=== PATIENT | female | born 1935 | race Caucasian/White ===

== ENCOUNTER 2022-09-28 09:56 | Inpatient (IN) | payer OTHER ==
[~2022-09-28] VITALS: Ht 157.5 cm; Wt 59.0 kg
--- NOTE | 2022-09-28 10:09 | NUR ---
Placed in room 2 . Placed on surveillance monitor, blood pressure machine and pulse oximeter. To gown for exam. Side rails up. Report given to DEPEA HAQUE AND AV ZHANG.
[2022-09-28 10:10] VITALS: BP_SYST 124
--- NOTE | 2022-09-28 10:10 | NUR ---
ER at bedside examining patient.
--- NOTE | 2022-09-28 10:15 | NUR ---
Patient SHAWNA from [facility]. Patient is A&Ox2. Patient has a guardado present upon arrival. Patient is A&Ox2 responds with name and is awake. Patient is stable at this time.
--- NOTE | 2022-09-28 10:16 | NUR ---
Accucheck performed result is 164
[2022-09-28 11:20] LABS: BASOPHILS # (AUTO) 0.1 K/uL (0.0-0.2); BASOPHILS % (AUTO) 0.3 % (0.0-2.0); EOSINOPHILS # (AUTO) 0.1 K/uL (0.0-0.4); EOSINOPHILS % (AUTO) 0.3 % (0.0-4.0); HEMATOCRIT 45.5 % (36-48); HEMOGLOBIN 14.6 g/dL (12.0-16.0); LYMPHOCYTES # (AUTO) 1.2 K/uL (1.0-5.5); LYMPHOCYTES % (AUTO) 5.9 % (20.5-51.5); MEAN CORPUSCULAR HEMOGLOBIN 25 pg (27-31); MEAN CORPUSCULAR HGB CONC 32 % (32-36); MEAN CORPUSCULAR VOLUME 77 fL (79.0-98.0); MONOCYTES # (AUTO) 2.4 K/uL (0.0-1.0); MONOCYTES % (AUTO) 11.5 % (1.7-9.3); NEUTROPHILS # (AUTO) 17.2 K/uL (1.8-7.7); RED BLOOD CELL COUNT(AUTO) 5.93 MIL/uL (4.2-6.2); RED CELL DISTRIBUTION WIDTH 17.6 % (9.0-15.0); WHITE BLOOD COUNT (AUTO) 20.9 K/uL (4.8-10.8)
[2022-09-28 11:22] LABS: PLATELET COUNT (AUTO) 830 K/uL (130-430)
[2022-09-28 11:32] LABS: ANION GAP 16 (5-15); CALCIUM 9.6 mg/dL (8.4-11.0); CHLORIDE 90 mmol/L (98-107); CREATININE 2.89 mg/dL (0.55-1.30); GLUCOSE 129 mg/dL (70-99)
[2022-09-28 11:38] LABS: UREA NITROGEN, BLOOD 138 mg/dL (8-21)
[2022-09-28] MEDS ORDERED: NACL 0.9% 1,000 ML IV ONE (11:45)
--- NOTE | 2022-09-28 11:45 | NUR ---
Guardado replacement as ordered per Dr. Valencia. Student Nurse Louisaing from [facility] performed the Guardado change with assistance from EMT and CONCRETE LAYER. Patient appears to have stool incontinence. Large amount of brown escrement present upon assessment of genoturiniary site. Cleaned with wet wipes, and provided fresh linens, gown, and replaced sage prior to beginning the insertion of the guardado catheter. Upon assessment a foregin object was discovered in the vaginal area. The object is unknown. Object was removed, RN notified. Held for MD evaluation if needed. Student nurse performed insertion with sterile techniqe observed by CONCRETE LAYER. Patient HOB placed at 30 degrees for comfort and applied fresh blankets after checking temperature. Patient's temperature was 97.1.
[2022-09-28 11:46] LABS: ALANINE AMINOTRANSFERASE 31 U/L (12-78); ALBUMIN 3.2 g/dL (3.4-4.8); ASPARTATE AMINOTRANSFERASE 43 U/L (10-37); PHOSPHORUS 3.7 mg/dL (2.7-4.5)
[2022-09-28] MEDS ORDERED: VANCOMYCIN HCL 1,000 MG in NS 250 ML IV ONE (12:30)
[2022-09-28] MEDS ORDERED: CEFEPIME 1 GM in D5W 50 ML IV ONE (12:30)
--- NOTE | 2022-09-28 12:37 | NUR ---
TAKEN TO RADIOLOGY VIA OCTAVIO
--- NOTE | 2022-09-28 12:43 | NUR ---
COVID/MRSA taken to lab.
[2022-09-28] MEDS: POTASSIUM CHLORIDE 40 MEQ in NS 250 ML IV SCH ×2 (13:01→17:11)
[2022-09-28] MEDS ORDERED: MEGESTROL ACETATE PO (13:21)
[2022-09-28] MEDS ORDERED: ALBU2.5V7 INH (13:21)
[2022-09-28] MEDS ORDERED: METO5TAB9 PO (13:21)
[2022-09-28] MEDS ORDERED: POTA-197 PO (13:21)
[2022-09-28] MEDS ORDERED: MULT-1089 PO (13:21)
[2022-09-28] MEDS ORDERED: ACET325T PO (13:21)
[2022-09-28] MEDS ORDERED: HEPA500015 SUBCUT (13:21)
[2022-09-28] MEDS ORDERED: PRO40 PO (13:21)
[2022-09-28] MEDS ORDERED: HYDR-3917 PO (13:21)
[2022-09-28] MEDS ORDERED: APIX2.5T PO (13:21)
[2022-09-28] MEDS ORDERED: NITR1PAT84 TD (13:21)
[2022-09-28] MEDS ORDERED: LIDOCAINE PATCH TP (13:21)
[2022-09-28] MEDS ORDERED: CYCL10TA24 PO (13:21)
[2022-09-28] MEDS ORDERED: LORA-259 PO (13:21)
[2022-09-28] MEDS ORDERED: ONDA-8 TL (13:21)
[2022-09-28] MEDS ORDERED: SYN50 PO (13:21)
[2022-09-28] MEDS ORDERED: NEBI20TA2 PO (13:21)
[2022-09-28] MEDS ORDERED: VERA120C2 PO (13:21)
[2022-09-28] MEDS ORDERED: LIP10 PO (13:21)
[2022-09-28] MEDS ORDERED: FURO-149 PO (13:21)
[2022-09-28] MEDS ORDERED: DIA250 PO (13:21)
--- NOTE | 2022-09-28 13:23 | NUR ---
Medication reconciliation completed with information provided by [facility]. Any prior medication reconciliation on file was reviewed and corrected.
--- NOTE | 2022-09-28 13:24 | NUR ---
FAMILY AT BEDSIDE FOR EVALUATION
--- NOTE | 2022-09-28 13:34 | NUR ---
DR PAGAN SPEAKING WITH PTS FAMILY REGARDING PTS CONDITION
--- NOTE | 2022-09-28 13:40 | NUR ---
ER Dr. Valencia at bedside examining patient and speaking with son.
--- NOTE | 2022-09-28 13:42 | NUR ---
RN at bedside attempting a line for the ABX.
[2022-09-28] MEDS ORDERED: MORPHINE 2 MG/ML INJ. SYRINGE IVP ONE (13:45)
[2022-09-28] MEDS ORDERED: CEFEPIME 1 GM/VIAL (MAXIPIME) ONE (13:51)
[2022-09-28] MEDS ORDERED: D5/0.45 NS 1,000 ML IV ONE (14:00)
--- NOTE | 2022-09-28 14:05 | NUR ---
Stated height of patient obtained from son.
--- NOTE | 2022-09-28 14:44 | NUR ---
Admit bed requested Patient will be admitted to care of . Admitted to TELEMETRY unit. Diagnosis SEPSIS, HYPOKALEMIA, RENAL FAILURE Inpatient (Yes or No) Y Observation (Yes or No) N Orientation concerns or request close to nursing station (Yes or No) Y Covid Status NEGATIVE On vent or bipap N Isolation requirements N Needs a sitter N From Home (Yes or if No enter name of facility) N Requires Dialysis (Yes or No) N Med Rec Completed (Yes of No) DONE
[2022-09-28] MEDS ORDERED: VANCOMYCIN HCL 1000 MG/VIAL IV ONE (15:09)
[2022-09-28 15:59] LABS: BILIRUBIN,URINE NEGATIVE (NEGATIVE); BLOOD, URINE 3+ (NEGATIVE); CLARITY/URINE CLEAR (CLEAR); COLOR,URINE YELLOW (YELLOW); GLUCOSE,URINE NEGATIVE (NEGATIVE); KETONES,URINE NEGATIVE (NEGATIVE); NITRITE, URINE NEGATIVE (NEGATIVE); PH,URINE 5.5 (5.0-8.0); PROTEIN URINE NEGATIVE (NEGATIVE)
[2022-09-28 16:09] LABS: LEUKOCYTE ESTERASE ,URINE TRACE (NEGATIVE)
[2022-09-28 16:10] LABS: BACTERIA,URINE FEW /HPF (None Seen); MUCUS,URINE None Seen /LPF (None Seen); RBC,URINE 20-50 /HPF (0-3)
--- NOTE | 2022-09-28 16:13 | NUR ---
REPORT GIVEN TO JODI BOB
--- NOTE | 2022-09-28 16:19 | NUR ---
CONSULTATION PAGED REASON FOR CONSULTATION:SEPSIS, HYPOKALEMIA, RENAL FAILURE WAS CONSULT CALLED?Y PERSON WHO WAS NOTIFIED:RADHA CONSULTING PHYSICIAN:MAHNAZ MCDANIEL ROTARY PEEL OVEN TENDER SPECIALTYNEPHROLOGY: ROTARY PEEL OVEN TENDER PHONE NUMBER:[phone] REQUESTING PHYSICIAN:JOANN WALKER
--- NOTE | 2022-09-28 16:23 | NUR ---
CONSULTATION PAGED REASON FOR CONSULTATION:SEPSIS, HYPOKALEMIA, RENAL FAILURE WAS CONSULT CALLED?Y PERSON WHO WAS NOTIFIED:VIVIAN CONSULTING PHYSICIAN:JOSELIN PAGE WELDER FITTER HELPER SPECIALTY:IMFECTIOUS DISEASE WELDER FITTER HELPER PHONE NUMBER:[phone] REQUESTING PHYSICIAN:JOANN WALKER
[2022-09-28 17:20] VITALS: BP_SYST 143
--- NOTE | 2022-09-28 18:17 | NUR ---
Shift Summary: patient is AAOX0. vitals are stable. patient confused and unable to answer admission questions. redness on sacrum. Mepilex placed. patient had one bm during shift. patient currently resting. will endorse to oncoming nurse. call light within reach, bed set to low, locked, and alarm on.
[2022-09-28 20:00] VITALS: BP_SYST 119
--- NOTE | 2022-09-28 20:26 | NUR ---
RECEIVED PT LYING IN BED, NO DISTRESS NOTED. UNABLE TO STATE HER NAME, RAMBLING SPEECH. O2 SAT 97% RA, DIMINISHED LUNG SOUNDS, WEAK PULSES TO ALL EXTREMITIES, BRUISING NOTED TO BUE. F/C DRAINING CLOUDY TRENT URINE. PT HAS IV SITE TO RT AC, WILL NEED TO PUT ARM BOARD TO PREVENT BENDING. Addendum: 09/29/22 at 0714 by Lizzy Blanchard, SHABNAM HAQUE PT C/O PAIN LEFT MESSAGE WITH EXCHANGE FOR DR CALLE FOR PAIN MEDICATION
[2022-09-28] MEDS: PIPERACILLIN/TAZO 3.375 GM in NS 50 ML IV SCH (23:12)
[2022-09-28] MEDS: D5NS 1,000 ML IV SCH (23:14)
[2022-09-29] VITALS: BP_SYST 107
[2022-09-29 07:47] LABS: BASOPHILS # (AUTO) 0.1 K/uL (0.0-0.2); BASOPHILS % (AUTO) 0.4 % (0.0-2.0); EOSINOPHILS # (AUTO) 0.1 K/uL (0.0-0.4); EOSINOPHILS % (AUTO) 0.6 % (0.0-4.0); HEMATOCRIT 44.6 % (36-48); HEMOGLOBIN 14.1 g/dL (12.0-16.0); LYMPHOCYTES % (AUTO) 5.7 % (20.5-51.5); MEAN CORPUSCULAR HEMOGLOBIN 24 pg (27-31); MEAN CORPUSCULAR HGB CONC 32 % (32-36); MEAN CORPUSCULAR VOLUME 77 fL (79.0-98.0); MONOCYTES # (AUTO) 1.8 K/uL (0.0-1.0); MONOCYTES % (AUTO) 10.4 % (1.7-9.3); NEUTROPHILS # (AUTO) 14.2 K/uL (1.8-7.7); PLATELET COUNT (AUTO) 743 K/uL (130-430); RED BLOOD CELL COUNT(AUTO) 5.81 MIL/uL (4.2-6.2); RED CELL DISTRIBUTION WIDTH 17.3 % (9.0-15.0); WHITE BLOOD COUNT (AUTO) 17.2 K/uL (4.8-10.8)
[2022-09-29 08:15] VITALS: BP_SYST 118
[2022-09-29] MEDS: PIPERACILLIN/TAZO 3.375 GM in NS 50 ML IV SCH ×3 (08:25→21:35)
[2022-09-29] MEDS: D5NS 1,000 ML IV SCH ×3 (08:27→18:05)
[2022-09-29 08:43] LABS: ALANINE AMINOTRANSFERASE 28 U/L (12-78); ALBUMIN 2.8 g/dL (3.4-4.8); ASPARTATE AMINOTRANSFERASE 35 U/L (10-37); CALCIUM 9.2 mg/dL (8.4-11.0); CREATININE 2.18 mg/dL (0.55-1.30); GLUCOSE 117 mg/dL (70-99); PHOSPHORUS 3.1 mg/dL (2.7-4.5); THYROID STIMULATING HORMONE 2.47 uIu/mL (0.34-4.82)
[2022-09-29] MEDS ORDERED: metOLazone 5 MG TABLET PO SCH (09:00)
[2022-09-29] MEDS ORDERED: acetaZOLAMIDE 250 MG TABLET (DIAMOX) PO SCH (09:00)
[2022-09-29] MEDS ORDERED: FUROSEMIDE 40 MG TABLET PO SCH (09:00)
[2022-09-29] MEDS ORDERED: NEBIVOLOL HCL Non-Formulary 5 MG TABLET PO SCH (09:00)
[2022-09-29 09:05] LABS: ANION GAP 16 (5-15); CHLORIDE 100 mmol/L (98-107)
[2022-09-29 09:14] LABS: UREA NITROGEN, BLOOD 118 mg/dL (8-21)
[2022-09-29] MEDS: MORPHINE 2 MG/ML INJ. SYRINGE IVP PRN ×2 (10:46→18:03)
[2022-09-29] MEDS: MULTIVITAMINS TAB 1 TABLET PO SCH (10:46)
[2022-09-29] MEDS: VERAPAMIL HCL 120 MG TABLET.SA PO SCH (10:48)
[2022-09-29] MEDS: METOPROLOL TARTRATE 50 MG TABLET PO SCH ×2 (10:49→21:38)
[2022-09-29] MEDS: APIXABAN 2.5 MG TABLET PO SCH ×2 (10:50→21:38)
[2022-09-29] MEDS: POTASSIUM CHLORIDE 40 MEQ in NS 250 ML IV SCH ×2 (10:52→17:53)
[2022-09-29 11:26] VITALS: BP_SYST 111
[2022-09-29 11:43] LABS: NEUTROPHILS % (AUTO) 82.9 % (40.0-70.0)
--- NOTE | 2022-09-29 11:50 | NUR ---
CONSULTATION PAGED/CALLED Reason for Consultation: CRISTINA Person Who was Notified: SUMI Consulting Physician: MASON CAI ( DR STEEL SENIOR TRAINER) Group Marketing Vp Specialty: GI Ordering Physician: JOANN CALLE
--- NOTE | 2022-09-29 12:23 | NUR ---
I have left a voicemail for Portia Ramos PSYCHOLOGIST COUNSELING at 1211 to clarify the midline placement order. Pt currently has 2 working PIV lines and no notes for manager terminal abx therapy. If still necessary I will call Dr. Parmjit Qureshi, PICC RN, request to clarify if pt the pt is cleared to have from nephrology standpoint.
--- NOTE | 2022-09-29 12:55 | NUR ---
I did not receive a call back from Portia MAINTENANCE CONTROLLER but spoken with Dr. Bhatti and he stated to have the line placed for longer term tx, IV KCL. I have paged Dr. Parnell to verify if pt is cleared from his standpoint for midline.
--- NOTE | 2022-09-29 12:59 | NUR ---
I have obtained clearance from Dr. Parnell for midline. I have left a voicemail for her son Matty Jackman to get consent.
--- NOTE | 2022-09-29 13:27 | NUR ---
I have obtained consent from the son for midline and I have informed Titus PICC RN, as requested.
[2022-09-29] MEDS ORDERED: POTASSIUM CHLORIDE 40 MEQ in NS 250 ML IV ONE (14:00)
[2022-09-29 15:21] VITALS: BP_SYST 110
--- NOTE | 2022-09-29 15:55 | NUR ---
Midline in in place to the right upper arm. Pt's prior PIv was AC x2 and even with arm board the infusions has to be restarted frequenting d/t occlusions. The first K-rider is still infusing. Second will be provided next
[2022-09-29] MEDS ORDERED: ALLOPURINOL 100 MG TABLET (ZYLOPRIM) PO ONE (17:00)
[2022-09-29] MEDS ORDERED: VANCOMYCIN HCL 1,000 MG in NS 250 ML IV ONE (17:00)
--- NOTE | 2022-09-29 19:15 | NUR ---
OPENING NOTE REPORT RECEIVED FROM DAYSOHFT NURSE. PATIENT RECEIVED LYING IN BED, RESTING. NO S/S OF ACUTE DISTRESS. BREATHING EVEN AND UNLABORED. HOB RAISED. IVF INFUSING WELL. IV SITE PATENT, NO SIGNS OF INFILTRATION OR INFECTION NOTED. ORTEGA ATTACHED, SECURED AND DRAINING BY GRAVITY. CALL LIGHT WITH PATIENT. BED ALARM ON. BED IS LOCKED AND AT LOWEST POSITION. WILL CONTINUE TO MONITOR.
[2022-09-29 20:00] VITALS: BP_SYST 121
[2022-09-29] MEDS: CYCLOBENZAPRINE HCL 10 MG TABLET (FLEXERIL) PO SCH (21:38)
[2022-09-29] MEDS: ATORVASTATIN 10 MG TABLET PO SCH (21:38)
--- NOTE | 2022-09-29 23:00 | NUR ---
INCONTINENT CARE PATIENT CLEANED AT THIS TIME. TOLERATED WELL. ALL NEEDS MET. WILL MONITOR.
[2022-09-30] VITALS: BP_SYST 114
[2022-09-30] MEDS: MORPHINE 2 MG/ML INJ. SYRINGE IVP PRN (01:32)
--- NOTE | 2022-09-30 03:00 | NUR ---
ROUNDS PATIENT IN BED, RESTING. NO CHANGE FROM PREVIOUS. ALL NEEDS MET. WILL MONITOR.
[2022-09-30] MEDS: D5NS 1,000 ML IV SCH (04:37)
[2022-09-30] MEDS: LEVOTHYROXINE SODIUM 0.05 MG TABLET PO SCH (06:34)
[2022-09-30] MEDS: PIPERACILLIN/TAZO 3.375 GM in NS 50 ML IV SCH ×3 (06:34→21:03)
--- NOTE | 2022-09-30 06:43 | NUR ---
CLOSING NOTE PATIENT IN BED, RESTING. NO S/S OF ACUTE DISTRESS NOTED. BREATHING EVEN AND UNLABORED. HOB RAISED. IVF INFUSING WELL. ORTEGA ATTACHED, SECURED, AND DRAINING BY GRAVITY. ALL NEEDS MET THROUGHOUT SHIFT. FALL, SAFETY PRECAUTIONS MAINTAINED THROUGHOUT SHIFT. WILL CONTINUE TO MONITOR UNTIL PATIENT CARE IS ENDORSED TO ONCOMING DAYSHIFT NURSE.
[2022-09-30 07:17] LABS: BASOPHILS # (AUTO) 0.1 K/uL (0.0-0.2); BASOPHILS % (AUTO) 0.9 % (0.0-2.0); EOSINOPHILS # (AUTO) 0.2 K/uL (0.0-0.4); EOSINOPHILS % (AUTO) 1.7 % (0.0-4.0); LYMPHOCYTES # (AUTO) 1.2 K/uL (1.0-5.5); LYMPHOCYTES % (AUTO) 8.5 % (20.5-51.5); MEAN CORPUSCULAR HEMOGLOBIN 24 pg (27-31); MEAN CORPUSCULAR HGB CONC 31 % (32-36); MEAN CORPUSCULAR VOLUME 78 fL (79.0-98.0); MONOCYTES # (AUTO) 2.1 K/uL (0.0-1.0); MONOCYTES % (AUTO) 15.6 % (1.7-9.3); NEUTROPHILS % (AUTO) 73.3 % (40.0-70.0); PLATELET COUNT (AUTO) 633 K/uL (130-430); RED BLOOD CELL COUNT(AUTO) 5.76 MIL/uL (4.2-6.2); RED CELL DISTRIBUTION WIDTH 17.5 % (9.0-15.0); WHITE BLOOD COUNT (AUTO) 13.7 K/uL (4.8-10.8)
--- NOTE | 2022-09-30 08:00 | NUR ---
SUMMARY OF CARE 0800- HAD A BM, LARGE IN AMOUNT. PATIENT CONFUSED, SCREAM AT TIMES. RESTLESS. GOOD PERICARE PROVIDED, ALL BEDDING WAS CHANGED. ZINC OXIDE APPLIED TO BUTTOCKS AREA RE REDNESS. TURNED AN REPOSITIONED. 1000- SPOKE TO DR CALLE AND MADE AWARE RE K-LEVEL AND AGITATED AT TIMES W/ NEW ORDERED NOTED. 1200- ASLEEP, BUT AROUSABLE. 1500- DR COBURN CAME AND DID MANUAL DIS- IMPACTION TO PATIENT. 1700 - SON CAME TO SEE PATIENT. 1900- SLEEPY BUT AROUSABLE, MOAN AT TIMES.
[2022-09-30 08:39] VITALS: BP_SYST 124
[2022-09-30 08:45] LABS: ANION GAP 15 (5-15); CHLORIDE 104 mmol/L (98-107); CREATININE 1.81 mg/dL (0.55-1.30); GLUCOSE 116 mg/dL (70-99); UREA NITROGEN, BLOOD 90 mg/dL (8-21); VANCOMYCIN,RANDOM 13.9 ug/mL
[2022-09-30] MEDS ORDERED: COMMUNICATION ORDER XX ONE (09:45)
[2022-09-30] MEDS ORDERED: KCL 20 mEq in 100 mL (PREMIX) 100 ML IV ONE (09:45)
[2022-09-30] MEDS: VERAPAMIL HCL 120 MG TABLET.SA PO SCH (10:50)
[2022-09-30] MEDS: APIXABAN 2.5 MG TABLET PO SCH ×2 (10:52→21:03)
[2022-09-30] MEDS: ALLOPURINOL 100 MG TABLET (ZYLOPRIM) PO SCH (10:53)
[2022-09-30] MEDS: METOPROLOL TARTRATE 50 MG TABLET PO SCH ×2 (10:54→21:02)
[2022-09-30] MEDS: MULTIVITAMINS TAB 1 TABLET PO SCH (10:55)
[2022-09-30] MEDS: LORazepam 2 MG/ML VIAL IVP PRN ×2 (10:58→23:53)
[2022-09-30] MEDS ORDERED: POTASSIUM CHLORIDE 40 MEQ, LIDOCAINE JECT 2% PF 100 MG 50 MG in NS 250 ML IV ONE (11:00)
[2022-09-30 11:33] VITALS: BP_SYST 122
[2022-09-30] MEDS: POTASSIUM CHLORIDE 40 MEQ in D5NS 1,000 ML IV SCH ×2 (12:29→21:03)
[2022-09-30 14:06] LABS: CREATININE, URINE 29.5 mg/dL (Not Estab.); MICROALBUMIN URINE RANDOM 27.9 ug/mL (Not Estab.)
[2022-09-30 15:17] VITALS: BP_SYST 102
[2022-09-30] MEDS ORDERED: POLYETHYLENE GLYCOL 3350, 17 GM/ POWD.PACK PO ONE (16:00)
--- NOTE | 2022-09-30 16:22 | NUR ---
Dietitian Recommendations * Pureed diet (Ensure TID comes standard w/ current diet; ONS yields 1050 kcal/day, 60 gm protein/day) * Consider ST benji ellis for thorough assessment of pt's safety for PO diet * Snacks TID * Encourage good PO intakes LP, MS, RD Please refer to Nutrition Assessment for details. Addendum: 09/30/22 at [address] Amended: Links added.
[2022-09-30] MEDS ORDERED: VANCOMYCIN HCL 750 MG in NS 250 ML IV SCH (18:00)
--- NOTE | 2022-09-30 19:15 | NUR ---
OPENING NOTE REPORT RECEIVED FROM DAYSNVFT NURSE. PATIENT RECEIVED LYING IN BED, EYES CLOSED, RESTING. NO S/S OF ACUTE DISTRESS. BREATHING EVEN AND UNLABORED. HOB RAISED. IVF INFUSING WELL. IV SITE PATENT, NO SIGNS OF INFILTRATION OR INFECTION NOTED. ORTEGA ATTACHED, SECURED, AND DRAINING BY GRAVITY. CALL LIGHT WITH PATIENT. BED ALARM ON. BED IS LOCKED AND AT LOWEST POSITION. WILL CONTINUE TO MONITOR.
[2022-09-30 20:00] VITALS: BP_SYST 105
[2022-09-30] MEDS: CYCLOBENZAPRINE HCL 10 MG TABLET (FLEXERIL) PO SCH (21:02)
[2022-09-30] MEDS: ATORVASTATIN 10 MG TABLET PO SCH (21:02)
--- NOTE | 2022-09-30 23:00 | NUR ---
INCONTINENT CARE PATIENT CLEANED BY LACE BURN OUT TENDER AT THIS TIME. TOLERATED WELL. ALL NEEDS MET AT THIS TIME. WILL MONITOR.
[2022-10-01 01:09] VITALS: BP_SYST 112
--- NOTE | 2022-10-01 03:00 | NUR ---
ROUNDS PATIENT IN BED RESTING. ALL NEEDS MET. NO CHANGE IN CONDITION. WILL MONITOR.
[2022-10-01] MEDS: MORPHINE 2 MG/ML INJ. SYRINGE IVP PRN ×3 (03:34→23:40)
[2022-10-01] MEDS: POTASSIUM CHLORIDE 40 MEQ in D5NS 1,000 ML IV SCH (05:19)
[2022-10-01] MEDS ORDERED: cefTRIAXone 1 GM IVPB PREMIX 50 ML IV ONE (05:23)
[2022-10-01] MEDS: cefTRIAXone 1 GM in D5W 50 ML IV SCH (05:34)
[2022-10-01] MEDS: LEVOTHYROXINE SODIUM 0.05 MG TABLET PO SCH ×2 (06:12→08:56)
--- NOTE | 2022-10-01 06:32 | NUR ---
CLOSING NOTE PATIENT IN BED, NO S/S OF ACUTE DISTRESS. BREATHING EVEN AND UNLABORED. HOB RAISED. IVF INFUSING WELL. ORTEGA ATTACHED, SECURED, AND DRAINING BY GRAVITY. ALL NEEDS MET THROUGHOUT SHIFT. FALL, SAFETY PRECAUTIONS MAINTAINED THROUGHOUT SHIFT. WILL CONTINUE TO MONITOR UNTIL PATIENT CARE IS ENDORSED TO ONCOMING DAYSHIFT NURSE.
[2022-10-01 07:45] LABS: BASOPHILS # (AUTO) 0.1 K/uL (0.0-0.2); BASOPHILS % (AUTO) 1.5 % (0.0-2.0); EOSINOPHILS # (AUTO) 0.4 K/uL (0.0-0.4); HEMATOCRIT 41.5 % (36-48); HEMOGLOBIN 13.5 g/dL (12.0-16.0); LYMPHOCYTES % (AUTO) 10.1 % (20.5-51.5); MEAN CORPUSCULAR HEMOGLOBIN 25 pg (27-31); MEAN CORPUSCULAR HGB CONC 32 % (32-36); MEAN CORPUSCULAR VOLUME 77 fL (79.0-98.0); MONOCYTES # (AUTO) 1.3 K/uL (0.0-1.0); MONOCYTES % (AUTO) 12.8 % (1.7-9.3); NEUTROPHILS # (AUTO) 7.3 K/uL (1.8-7.7); NEUTROPHILS % (AUTO) 71.6 % (40.0-70.0); PLATELET COUNT (AUTO) 648 K/uL (130-430); RED BLOOD CELL COUNT(AUTO) 5.36 MIL/uL (4.2-6.2); RED CELL DISTRIBUTION WIDTH 17.4 % (9.0-15.0)
[2022-10-01 07:50] LABS: ALANINE AMINOTRANSFERASE 28 U/L (12-78); ALBUMIN 2.3 g/dL (3.4-4.8); ANION GAP 13 (5-15); ASPARTATE AMINOTRANSFERASE 31 U/L (10-37); CALCIUM 8.7 mg/dL (8.4-11.0); CHLORIDE 113 mmol/L (98-107); CREATININE 1.49 mg/dL (0.55-1.30); GLUCOSE 112 mg/dL (70-99); TOTAL BILIRUBIN 0.6 mg/dL (0.0-1.0); UREA NITROGEN, BLOOD 56 mg/dL (8-21)
--- NOTE | 2022-10-01 08:00 | NUR ---
Morning Rounds: Patient laying in bed. Patient is moaning occasionally. Bed in lowest position, call light within reach.
[2022-10-01 08:08] LABS: WHITE BLOOD COUNT (AUTO) 10.1 K/uL (4.8-10.8)
[2022-10-01] MEDS: LORazepam 2 MG/ML VIAL IVP PRN ×2 (08:51→15:25)
--- NOTE | 2022-10-01 09:06 | NUR ---
NEPHRO ORDER: POTASSIUM=2.[address] Aura MARISCAL,OF THE RESULT,WITH ORDERS, GIVE K-RIDER 40MEQ IV +LIDO 75MG X 1 DOSE
--- NOTE | 2022-10-01 09:08 | NUR ---
HIGH ALERT NOTE: Called back at his identified within the medical roster to verify physician authenticity.
[2022-10-01] MEDS: APIXABAN 2.5 MG TABLET PO SCH ×2 (09:10→21:02)
[2022-10-01] MEDS: ALLOPURINOL 100 MG TABLET (ZYLOPRIM) PO SCH (09:11)
[2022-10-01] MEDS: MULTIVITAMINS TAB 1 TABLET PO SCH (09:11)
[2022-10-01] MEDS: VERAPAMIL HCL 120 MG TABLET.SA PO SCH (09:11)
[2022-10-01] MEDS: METOPROLOL TARTRATE 50 MG TABLET PO SCH ×2 (09:12→21:03)
[2022-10-01] MEDS: POLYETHYLENE GLYCOL 3350, 17 GM/ POWD.PACK PO SCH (09:12)
[2022-10-01] MEDS ORDERED: POTASSIUM CHLORIDE 40 MEQ, LIDOCAINE JECT 2% PF 100 MG 75 MG in NS 250 ML IV ONE (10:00)
[2022-10-01 11:39] VITALS: BP_SYST 127
[2022-10-01 11:47] VITALS: BP_SYST 127
[2022-10-01 11:56] VITALS: BP_SYST 107
[2022-10-01] MEDS ORDERED: SPIRONOLACTONE 50 MG TABLET (ALDACTONE) PO ONE (13:30)
[2022-10-01] MEDS: KCL 20 mEq in D5/0.45NS 1000mL 1,000 ML IV SCH (15:16)
[2022-10-01 16:20] VITALS: BP_SYST 144
[2022-10-01 18:46] LABS: VANCOMYCIN,RANDOM 8.1 ug/mL
--- NOTE | 2022-10-01 19:30 | NUR ---
End of Shift: Patient is in bed. Endorsed night nurse to call doctor to increase pain medication frequency. Bed in lowest position, call light in reach.
[2022-10-01 20:00] VITALS: BP_SYST 120
[2022-10-01] MEDS: CYCLOBENZAPRINE HCL 10 MG TABLET (FLEXERIL) PO SCH (21:03)
[2022-10-01] MEDS: ATORVASTATIN 10 MG TABLET PO SCH (21:05)
[2022-10-01] MEDS: ACETAMINOPHEN 325 MG TABLET PO PRN (22:04)
--- NOTE | 2022-10-01 22:46 | NUR ---
Rectal Bleeding PT HAD RECTAL BLEEDING AND CLOTTED. NOTIFIED DR. CALLE @ [phone]. ORDERED CBC, CMP, PT/PTT IN THE MORNING. REFERS TO DR. CAI FOR GI BLEEDING.
--- NOTE | 2022-10-01 22:57 | NUR ---
CONSULTATION PAGED/CALLED Reason for Consultation: EPISODE OF RECTAL BLEEDING Person Who was Notified: DR OLIVIER Consulting Physician: DR CAI Incident Response Specialist Specialty: Ordering Physician: LUC
--- NOTE | 2022-10-01 23:00 | NUR ---
RECTUM BLEEDING RECEIVED CALL DR. OLIVIER @ 1518. REPORTED PT HAD BLEEDING FROM RECTUM AND AMOUNT WAS SOAKED ONE WHOLE PAD. SAID HE WILL SEE THE PATIENT IN THE MORNING. NO OTHER INTERVENTION ORDERED.
--- NOTE | 2022-10-02 00:08 | NUR ---
OPENING NOTE PT LYING IN BED AND SON AT BEDSIDE. PT SCREAMS FOR PAIN BUT NOT ABLE TO COMMUNICATE. VSS. PT'S SON ASKED FOR LOCAL PAIN INJECTION ON HER KNEE BECAUSE HE THINKS MORPHINE IS TOO STRONG FOR PT'S AGE. THIS NEWSPAPER WRITER WILL CALL DR. CALLE. BED ALARM ON. SAFETY CHECKS IN PLACE. CALL LIGHT IN REACH. CONTINUE TO MONITOR. Addendum: 10/02/22 at 0017 by Wilbert Hassan LVN THE INPUT TIME WAS 10/01/2022 @1930
[2022-10-02 00:37] VITALS: BP_SYST 126
--- NOTE | 2022-10-02 02:26 | NUR ---
PAGED PAGED DOCTOR ALMAS FOR ORDERS
--- NOTE | 2022-10-02 02:45 | NUR ---
REQUEST LAB. PT STILL BLEEDING. REQUEST MORNING BLOOD WORK NOW.
[2022-10-02 03:10] VITALS: BP_SYST 133
[2022-10-02 03:11] LABS: ANION GAP 12 (5-15); CALCIUM 8.9 mg/dL (8.4-11.0); CHLORIDE 119 mmol/L (98-107); CREATININE 1.26 mg/dL (0.55-1.30); GLUCOSE 105 mg/dL (70-99); UREA NITROGEN, BLOOD 39 mg/dL (8-21)
[2022-10-02 03:21] LABS: BASOPHILS # (AUTO) 0.1 K/uL (0.0-0.2); BASOPHILS % (AUTO) 1.2 % (0.0-2.0); EOSINOPHILS # (AUTO) 0.2 K/uL (0.0-0.4); HEMATOCRIT 36.5 % (36-48); HEMOGLOBIN 11.4 g/dL (12.0-16.0); LYMPHOCYTES # (AUTO) 1.4 K/uL (1.0-5.5); LYMPHOCYTES % (AUTO) 11.5 % (20.5-51.5); MEAN CORPUSCULAR HEMOGLOBIN 24 pg (27-31); MEAN CORPUSCULAR HGB CONC 31 % (32-36); MEAN CORPUSCULAR VOLUME 78 fL (79.0-98.0); MONOCYTES # (AUTO) 1.7 K/uL (0.0-1.0); MONOCYTES % (AUTO) 14.2 % (1.7-9.3); NEUTROPHILS # (AUTO) 8.5 K/uL (1.8-7.7); NEUTROPHILS % (AUTO) 71.1 % (40.0-70.0); PLATELET COUNT (AUTO) 662 K/uL (130-430); RED BLOOD CELL COUNT(AUTO) 4.69 MIL/uL (4.2-6.2); RED CELL DISTRIBUTION WIDTH 17.4 % (9.0-15.0)
--- NOTE | 2022-10-02 03:50 | NUR ---
LAB RESULTS PT'S BLOOD TEST RESULTS HgB 11.4, Hct 36.5, POTASSIUM 3.5, BUN 39. NOTIFIED SHABNAM STEVE. CONTINUE TO MONITOR
[2022-10-02] MEDS: LORazepam 2 MG/ML VIAL IVP PRN ×3 (04:25→22:56)
[2022-10-02 04:42] LABS: INR 1.3 (0.8-1.2); PROTHROMBIN TIME 13.3 SECS (9.5-12.5)
[2022-10-02] MEDS: cefTRIAXone 1 GM in D5W 50 ML IV SCH (04:49)
[2022-10-02] MEDS: KCL 20 mEq in D5/0.45NS 1000mL 1,000 ML IV SCH (04:51)
--- NOTE | 2022-10-02 07:27 | NUR ---
CLOSING NOTE PT LYING IN BED. EYES CLOSED. RESTLESS. STILL RECTAL BLEEDING. CALLED TO PT'S SON FOR PT'S CONDITION UPDATE @0700 BUT NOT ANSWERED. SAFETY CHECKS IN PLACE. CALL LIGHT IN REACH. ENDORSED TO DAY SHIFT NURSE AND INFORMED ABOUT GI Dr. COBURN WILL SEE HER IN THE MORNING FOR RECTAL BLEEDING.
[2022-10-02 08:00] VITALS: BP_SYST 139
--- NOTE | 2022-10-02 08:00 | NUR ---
Morning Rounds: Patient is moaning in bed. Patient unable to communicate. Bed in lowest position, call light in reach.
[2022-10-02] MEDS: VERAPAMIL HCL 120 MG TABLET.SA PO SCH (09:00)
[2022-10-02] MEDS: APIXABAN 2.5 MG TABLET PO SCH ×2 (09:00→23:02)
[2022-10-02] MEDS: POLYETHYLENE GLYCOL 3350, 17 GM/ POWD.PACK PO SCH (09:00)
[2022-10-02] MEDS ORDERED: BISACODYL 5 MG TABLET.DR (DULCOLAX) PO ONE (09:00)
[2022-10-02] MEDS: ALLOPURINOL 100 MG TABLET (ZYLOPRIM) PO SCH (09:00)
[2022-10-02] MEDS: MULTIVITAMINS TAB 1 TABLET PO SCH (09:00)
[2022-10-02] MEDS: MORPHINE 2 MG/ML INJ. SYRINGE IVP PRN ×2 (09:26→17:58)
[2022-10-02] MEDS ORDERED: GOLYTELY / COLYTE SOLUTION 4 LITERS NG ONE (10:00)
--- NOTE | 2022-10-02 10:00 | NUR ---
Blood clots: Another large blood clots came out,cleaned patient.Gi already aware and ordered for Kub and Ng tube placement.
--- NOTE | 2022-10-02 10:15 | NUR ---
NG TUBE: NG TUBE PLACED AT LEFT NOSTRILS,CHECKED PLACEMENT VIA STETHOSCOPE,POSITIVE PLACEMENT.
--- NOTE | 2022-10-02 10:40 | NUR ---
PORTABLE X-RAY: KUB DONE AT THE BEDSIDE ORDERED.
[2022-10-02 11:41] VITALS: BP_SYST 117
[2022-10-02] MEDS: SPIRONOLACTONE 50 MG TABLET (ALDACTONE) PO SCH (14:01)
[2022-10-02] MEDS: METOPROLOL TARTRATE 50 MG TABLET PO SCH ×2 (14:01→23:01)
--- NOTE | 2022-10-02 14:15 | NUR ---
NGT ADJUSTMENT: NG TUBE AT LEFT NARES ADVANCED TO 5CM PER RADIOLOGIST. RECHECKED NG TUBE AT LEFT NARES BY AUSCULTATION,WITH POSITIVE PLACEMENT NOTED.
--- NOTE | 2022-10-02 15:30 | NUR ---
CALLED MD: CALLED DR CALLE AND SPOKE WITH SON CAROLA FOR UPDATES REGARDING PATIENT CONDITION.
[2022-10-02 17:31] VITALS: BP_SYST 112
--- NOTE | 2022-10-02 18:00 | NUR ---
GI ROUNDS: DR COBURN SEEN PATIENT IN THE ROOM.INFORMED GI THAT PT'S SON/FAMILY WANTS SOME UPDATES REGARDING PATIENT CONDITION. WITH ORDERS TO CHECK H&H Q 8H X3.
[2022-10-02] MEDS: KCL 20 mEq in D5W 1000 mL 1,000 ML IV SCH (18:04)
--- NOTE | 2022-10-02 19:45 | NUR ---
Closing Rounds: Patient is lying in bed moaning. Call light in reach, bed in lowest position. Began bowel prep for ordered morning colonoscopy, procedure/protocol endorsed to oncoming pointing machine operator. NPO, water tap enemia until clear per order.
[2022-10-02 20:00] VITALS: BP_SYST 123
--- NOTE | 2022-10-02 20:00 | NUR ---
OPENING Received patient in bed, noted to be restless. Mitten restraints on. Patient had large bowel movement with large blood clots noted. Gown and linens changed. NG tube to left nare. Adkins catheter in place draining jayant urine. IV fluids infusing to midline.
[2022-10-02 20:19] LABS: HEMATOCRIT 28.6 % (36-48); HEMOGLOBIN 8.6 g/dL (12.0-16.0)
--- NOTE | 2022-10-02 21:40 | NUR ---
PAGED PAGE DOCTOR ALMAS
--- NOTE | 2022-10-02 21:40 | NUR ---
Patient restless, yelling and attempting to pull at NG tube despite mittens. Mittens discontinued and switched to bilateral wrist restraints as ordered.
--- NOTE | 2022-10-02 22:05 | NUR ---
2 ND PAGED PAGED DOCTOR ALMAS FOR ORDERS
--- NOTE | 2022-10-02 22:07 | NUR ---
CONSULTATION PAGED/CALLED Reason for Consultation: ARRYTHMIA Person Who was Notified: CONSUELO Consulting Physician: JAC Potato Bucker Specialty: Ordering Physician: LUC
--- NOTE | 2022-10-02 22:13 | NUR ---
DR. KIM Spoke with Dr. Kim about new consultation including current bleeding and plan for colonoscopy. Notified him of patient's rhythm change and decreasing BP, as well as presence of pacemaker with no paced beats shown in the last few days on tele monitor (some were noted after admission). Received order for 250mL NS bolus and to change rate of IV fluids.
[2022-10-02] MEDS ORDERED: NS 250 ML IV ONE (22:15)
--- NOTE | 2022-10-02 22:40 | NUR ---
DR. REED Spoke with Dr. Reed about patient's continued bleeding and vitals. Dr. Reed stated he wants to continue with preparation for colonoscopy in the morning. Received order for H&H q6hr x4 and order to transfer 1 unit PRBCs if Hgb<8, and to transfuse 2 units PRBCs if Hgb<7.
[2022-10-02] MEDS: CYCLOBENZAPRINE HCL 10 MG TABLET (FLEXERIL) PO SCH (23:03)
[2022-10-02] MEDS: ATORVASTATIN 10 MG TABLET PO SCH (23:03)
[2022-10-03] VITALS (21 sets, daily range): BP systolic 97–146
[2022-10-03] MEDS ORDERED: metroNIDAZOLE 500 mg/NS 200 ML IV ONE (00:55)
[2022-10-03] MEDS: metroNIDAZOLE 500 mg/NS 100 ML IV SCH ×5 (01:02→21:02)
[2022-10-03 01:12] LABS: HEMATOCRIT 22.3 % (36-48)
--- NOTE | 2022-10-03 01:18 | NUR ---
CRITICAL LAB: Ed from Laboratory called with critical lab value Hgb 7.0. Medical record number and patient name verified. Read back of values done.
--- NOTE | 2022-10-03 03:00 | NUR ---
Dr. Reed notified of patient's Hgb 7.0 and decreased blood pressure. BP fluctuating with positioning but SBP noted in 80s when head elevated. Received order to transfer to ICU. No bed currently available. Dr. Reed stated to continue with preparation for colonoscopy in morning.
--- NOTE | 2022-10-03 03:55 | NUR ---
BLOOD TRANSFUSION INITIATION AT 0340 (UNIT 1 of 2 ORDERED) Consent signed agreeing to administration of blood. Blood has been type and crossmatched. Blood sent from blood bank. Information on unit of blood checked against patient wristband at bedside by two nurses. All information matches. No reaction noted after 15 minutes - temp 96.9, HR 67, BP 110/72, RR 20.
--- NOTE | 2022-10-03 04:30 | NUR ---
Patient transferred to ICU. Blood still infusing, no sign of reaction. Bilateral wrist restraints on. NG tube and Adkins catheter in place.
[2022-10-03] MEDS: KCL 20 mEq in D5W 1000 mL 1,000 ML IV SCH ×3 (04:59→21:01)
[2022-10-03] MEDS: cefTRIAXone 1 GM in D5W 50 ML IV SCH (05:00)
[2022-10-03] MEDS: LEVOTHYROXINE SODIUM 0.05 MG TABLET PO SCH (06:14)
[2022-10-03] MEDS: LORazepam 2 MG/ML VIAL IVP PRN ×2 (06:15→16:55)
[2022-10-03 07:05] LABS: INR 1.5 (0.8-1.2); PROTHROMBIN TIME 14.5 SECS (9.5-12.5)
[2022-10-03 07:10] LABS: ANION GAP 18 (5-15); CALCIUM 8.5 mg/dL (8.4-11.0); CHLORIDE 117 mmol/L (98-107); CREATININE 2.06 mg/dL (0.55-1.30); GLUCOSE 96 mg/dL (70-99); UREA NITROGEN, BLOOD 42 mg/dL (8-21)
[2022-10-03] MEDS ORDERED: MIDAZOLAM HCL 5 MG/5 ML VIAL ONE (08:00)
[2022-10-03] MEDS ORDERED: fentaNYL CITRATE/PF 100 MCG/2 ML AMP ONE (08:00)
[2022-10-03] MEDS ORDERED: SIMETHICONE 40 MG/0.6 ML ML ONE (08:06)
--- NOTE | 2022-10-03 08:27 | NUR ---
BLOOD TRANSFUSION FINISHED, POST TRANSFUSION VITAL SIGNS. 142/89, 106 HEART RATE, 19 RR, 96.0 TEMP, 100% O2 ON 3L NASAL CANNULA.
[2022-10-03] MEDS ORDERED: NS 500 ML IV ONE (08:30)
--- NOTE | 2022-10-03 08:57 | NUR ---
rt notes 0837 placed pt on portable pulse ox, placed pt on nrb 100% while colonoscopy procedure is done. sat 100%. replaced pulse ox on ear lobe. pt cont to sat 100% will titrate fio2 post procedure, joel rangel aware. Addendum: 10/03/22 at 0900 by Ethel Raymundo RT Amended: Links added.
[2022-10-03] MEDS: POLYETHYLENE GLYCOL 3350, 17 GM/ POWD.PACK PO SCH (09:00)
[2022-10-03] MEDS: VERAPAMIL HCL 120 MG TABLET.SA PO SCH ×2 (09:00→13:49)
--- NOTE | 2022-10-03 09:20 | NUR ---
COLONOSCOPY FINISHED, PATIENT TOLERATED WELL. NO S/SX DISTRESS NOTED. PER DR. CARVER RECTAL ULCER SEEN. PER DR. CARVER PATIENT TO GO ON CLEAR LIQUID DIET. NURSE TO DO BEDSIDE SWALLOW EVAL
[2022-10-03 09:26] LABS: BASOPHILS # (AUTO) 0.1 K/uL (0.0-0.2); BASOPHILS % (AUTO) 0.8 % (0.0-2.0); EOSINOPHILS # (AUTO) 0.2 K/uL (0.0-0.4); HEMATOCRIT 29.8 % (36-48); HEMOGLOBIN 9.5 g/dL (12.0-16.0); LYMPHOCYTES # (AUTO) 2.1 K/uL (1.0-5.5); LYMPHOCYTES % (AUTO) 12.7 % (20.5-51.5); MEAN CORPUSCULAR HEMOGLOBIN 27 pg (27-31); MEAN CORPUSCULAR HGB CONC 32 % (32-36); MEAN CORPUSCULAR VOLUME 83 fL (79.0-98.0); MONOCYTES # (AUTO) 2.1 K/uL (0.0-1.0); MONOCYTES % (AUTO) 12.4 % (1.7-9.3); NEUTROPHILS # (AUTO) 12.2 K/uL (1.8-7.7); NEUTROPHILS % (AUTO) 73.1 % (40.0-70.0); PLATELET COUNT (AUTO) 402 K/uL (130-430); RED BLOOD CELL COUNT(AUTO) 3.57 MIL/uL (4.2-6.2); RED CELL DISTRIBUTION WIDTH 18.5 % (9.0-15.0); WHITE BLOOD COUNT (AUTO) 16.7 K/uL (4.8-10.8)
--- NOTE | 2022-10-03 09:59 | NUR ---
Nutrition F/U RD reviewed pts current EMR including diet hx, physician notes, nursing notes, pertinent labs/meds/procedures, care trends and care activity. Subjective Information RD attended ICU rounds and s/w primary RN. She said pt is receiving D5@ 120mL/hr (provides 490 kcal). Pt had NGT to left nare but Dr will DC that soon. Pt is on 3L LC. RN attested pt has intact skin but sacral redness. RN said that CLD will likely begin today. Per EMR review:abd soft, non-distended w/ active bowel sounds. Current Diet Order/Nutrition Support NPO x 1 day % PO intake NPO Last BM 10/01 x 3, d/t golytely medication Estimated Energy Expenditure (kcals/day) 1433-1232 (30-35 kcal/kg CBW d/t sepsis) Estimated Protein Required (g/day) 71-88 (1.25-1.5 gm/kg CBW d/t FARHAD, sepsis) Estimated Fluid Required (l/day) Per physician d/t CHF Problem/Etiology/Signs/Symptoms Inadequate oral intakes R/T suspected chewing/swallowing difficulty AEB negligible PO intake records and nursing report. Expected Outcomes/Goals - Monitor appetite and PO intakes w/ goal of pt meeting >25% of estimated nutritional needs, labs trending WNL, normal GI function, and skin integrity/wt maintenance Dietitian Recommendations * Advance to Clear liquid diet when appropriate * Consider ST swallow eval for thorough assessment of pt's safety for PO diet * Encourage good PO intakes Follow up High risk: see pt in 2-3 days GS, MPH, RD
--- NOTE | 2022-10-03 10:00 | NUR ---
Dietitian Recommendations * Advance to Clear liquid diet when appropriate * Consider ST swallow eval for thorough assessment of pt's safety for PO diet * Encourage good PO intakes GS, MPH, RD Please refer to Nutrition F/U for further details. Thanks!
[2022-10-03] MEDS: METOPROLOL TARTRATE 50 MG TABLET PO SCH ×2 (10:26→21:02)
[2022-10-03] MEDS: ALLOPURINOL 100 MG TABLET (ZYLOPRIM) PO SCH (10:27)
[2022-10-03] MEDS: MULTIVITAMINS TAB 1 TABLET PO SCH (10:27)
[2022-10-03] MEDS: SPIRONOLACTONE 50 MG TABLET (ALDACTONE) PO SCH (10:53)
--- NOTE | 2022-10-03 11:00 | NUR ---
NURSE BEDSIDE SWALLOW EVAL PERFORMED, PATIENT WAS UNABLE TO SUCCESSFULLY SWALLOW. DR. CALLE NOTIFIED. AN ORDER FOR A SWALLOW EVAL WITH ST ORDERED.
--- NOTE | 2022-10-03 11:10 | NUR ---
HIGH ALERT NOTE: Called Dr. LUC arreola at identified within the medical roster to verify physician authenticity. POTASSIUM CHLORIDE 20 MEQ PACKET VIA NG TUBE, READ BACK VERIFIED Addendum: 10/03/22 at 1126 by Dianne Krishnamurthy RN CALLED BACK AT [phone]
[2022-10-03] MEDS ORDERED: POTASSIUM CHLORIDE 20 MEQ/PKT PACKET NG ONE (11:30)
[2022-10-03] MEDS: MORPHINE 2 MG/ML INJ. SYRINGE IVP PRN ×2 (14:24→15:46)
--- NOTE | 2022-10-03 14:26 | NUR ---
PATIENT WAS CRYING AND YELLING. REPOSITIONED PATIENT AND PATIENT STILL CRYING OUT WITH FACIAL GRIMACING. WENT TO PULL MORPHINE 1 MG NEEDED. ATTEMPTED TO ADMINISTER AT BEDSIDE, PATIENT'S BLOOD PRESSURE 90/42 AND PATIENT RESTING EYES CLOSED, VISITOR AT BEDSIDE. MORPHINE WITHHELD. UNDONE IN MEDICATION ADMINISTRATION RECORD.
--- NOTE | 2022-10-03 15:30 | NUR ---
Wound Evaluation: Wound Consult ordered for Low Lion Score. Patient evaluated for a low Lion score of 13. Patient was awake, confused, and was in a Grandin Bed. Patient needs to be turned in bed. Skin Integrity: 1. Sacral/Buttocks areas: Blanchable redness from IAD. Recommend: Cleanse involved areas with mild soap and water. Gently pat dry. Apply moisture barrier cream to involved areas. Perform site care 4 times daily and as needed for soiling. Also recommend: Reposition patient side to side only every 2 hours with pillow support. Elevate, off-load and float bilateral heels with 1 pillow lengthwise under each extremity at all times. Offload pressure areas with pillows for pressure re-distribution. Perform skin care and monitor skin integrity Q shift. Use moisture barrier cream on moisture susceptible areas QID and PRN for soiling. Place patient on a low air-loss mattress and initiate low air loss therapy.
--- NOTE | 2022-10-03 15:50 | NUR ---
DR. NATHAN NOTIFIED OF PATIENT'S CARDIAC ARRYTHMIAS. NO NEW ORDERS AT THIS TIME.
--- NOTE | 2022-10-03 16:38 | NUR ---
ST EVALUATION COMPLETED. ST TX NOT INDICATED AT THIS TIME. PT UNABLE TO DEMONSTRATE A SAFE OR EFFECTIVE SWALLOW. RECOMMEND NPO WITH CONTINUED NG FEEDING.
[2022-10-03] MEDS: ATORVASTATIN 10 MG TABLET PO SCH (21:01)
[2022-10-03] MEDS: CYCLOBENZAPRINE HCL 10 MG TABLET (FLEXERIL) PO SCH (21:01)
[2022-10-03 21:28] LABS: HEMATOCRIT 28.9 % (36-48); HEMOGLOBIN 9.1 g/dL (12.0-16.0)
[2022-10-04] VITALS (22 sets, daily range): BP systolic 83–144
[2022-10-04] MEDS: cefTRIAXone 1 GM in D5W 50 ML IV SCH (05:09)
[2022-10-04] MEDS: KCL 20 mEq in D5W 1000 mL 1,000 ML IV SCH ×3 (05:09→18:06)
[2022-10-04] MEDS: metroNIDAZOLE 500 mg/NS 100 ML IV SCH ×3 (05:09→22:25)
[2022-10-04 05:47] LABS: BASOPHILS # (AUTO) 0.2 K/uL (0.0-0.2); EOSINOPHILS # (AUTO) 0.5 K/uL (0.0-0.4); EOSINOPHILS % (AUTO) 3.3 % (0.0-4.0); HEMATOCRIT 27.8 % (36-48); HEMOGLOBIN 9.3 g/dL (12.0-16.0); LYMPHOCYTES # (AUTO) 1.9 K/uL (1.0-5.5); LYMPHOCYTES % (AUTO) 12.5 % (20.5-51.5); MEAN CORPUSCULAR HEMOGLOBIN 27 pg (27-31); MEAN CORPUSCULAR HGB CONC 33 % (32-36); MEAN CORPUSCULAR VOLUME 81 fL (79.0-98.0); MONOCYTES # (AUTO) 1.2 K/uL (0.0-1.0); MONOCYTES % (AUTO) 7.6 % (1.7-9.3); NEUTROPHILS # (AUTO) 11.6 K/uL (1.8-7.7); NEUTROPHILS % (AUTO) 75.6 % (40.0-70.0); PLATELET COUNT (AUTO) 403 K/uL (130-430); RED BLOOD CELL COUNT(AUTO) 3.44 MIL/uL (4.2-6.2); RED CELL DISTRIBUTION WIDTH 18.2 % (9.0-15.0); WHITE BLOOD COUNT (AUTO) 15.3 K/uL (4.8-10.8)
[2022-10-04 06:15] LABS: ANION GAP 12 (5-15); CHLORIDE 111 mmol/L (98-107); CREATININE 1.24 mg/dL (0.55-1.30); GLUCOSE 93 mg/dL (70-99); UREA NITROGEN, BLOOD 25 mg/dL (8-21)
[2022-10-04] MEDS: LEVOTHYROXINE SODIUM 0.05 MG TABLET PO SCH (06:15)
[2022-10-04] MEDS: MORPHINE 2 MG/ML INJ. SYRINGE IVP PRN ×3 (06:15→22:25)
--- NOTE | 2022-10-04 07:30 | NUR ---
PAGED DR MARISCAL FOR K LEVEL OF 2.8.
--- NOTE | 2022-10-04 08:00 | NUR ---
RECEIVED PT WITH NG TUBE, CLAMPLED, NO RESIDUAL. PT HAS MIDLINE WITH IVFLUIDS RUNNING. PT ON BILAT WRIST RESTRAINTS FOR PT CANNOT BE EDUCATED DUE TO CONFUSION/ALOC. PT IS SCREAMING ON AND OFF. UNABLE TO ANSWER QUESTION AND NOT TALKING.
--- NOTE | 2022-10-04 08:13 | NUR ---
HIGH ALERT NOTE: Called back at [phone] identified within the medical roster to verify physician authenticity. New order received and carried out.
[2022-10-04] MEDS: ALLOPURINOL 100 MG TABLET (ZYLOPRIM) PO SCH (08:45)
[2022-10-04] MEDS: MULTIVITAMINS TAB 1 TABLET PO SCH (08:45)
[2022-10-04] MEDS: POLYETHYLENE GLYCOL 3350, 17 GM/ POWD.PACK PO SCH (08:45)
[2022-10-04] MEDS: METOPROLOL TARTRATE 50 MG TABLET PO SCH ×2 (08:46→20:53)
[2022-10-04] MEDS: SPIRONOLACTONE 50 MG TABLET (ALDACTONE) PO SCH (08:46)
[2022-10-04] MEDS: VERAPAMIL HCL 120 MG TABLET.SA PO SCH (08:49)
[2022-10-04] MEDS: LORazepam 2 MG/ML VIAL IVP PRN (10:57)
[2022-10-04] MEDS ORDERED: POTASSIUM CHLORIDE IV ONE (11:00)
[2022-10-04] MEDS ORDERED: LIDOCAINE JECT IV ONE (11:00)
[2022-10-04] MEDS ORDERED: NS IV ONE (11:00)
--- NOTE | 2022-10-04 11:02 | NUR ---
PT STILL VERY AGITATED. GIVEN ATIVAN. WILL CONT TO MONITOR.
--- NOTE | 2022-10-04 13:40 | NUR ---
PT STILL SCREAMING MORE OFTEN THAN NOT. GIVEN MORPHINE 1 MG PRN FOR PAIN.
--- NOTE | 2022-10-04 13:52 | NUR ---
PT'S SON AKHIL HERE AND DR MARISCAL ROUNDING: UPDATED PT'S SON WITH PT'S STATUS AND CONDITION. THE SON IS MADE AWARE THAT PT'S HAS BEEN SCREAMING SINCE LAST NIGHT, TOLD THAT THE NURSE STATED THAT SHE STARTED SCREAMING SINCE YESTERDAY AFTER HE VISITED THE PT. AND WE BEEN TRYING THE PAIN AND ANXIETY MEDICATIONS. AKHIL SAID HE WANTS TO KNOW WHY IS PT STILL SCREAMING EVEN AFTER THE COLONOSCOPY. HE SAID HE WANTED TO TALK TO DR ALDANA. DR MARISCAL SPOKE WITH PT'S SON AKHIL. GAVE NEW ORDER. PAGED DR ALDANA TO TALK TO PT'S SON. Addendum: 10/04/22 at 1438 by Andrea Day RN PT'S STATED HE WANT TO CHECK WITH DR ALDANA IF WE CAN DO MRI OF ABDOMEN TO CHECK WHY PT IS STILL SCREAMING.
[2022-10-04] MEDS ORDERED: NS IV PRN (14:30)
[2022-10-04] MEDS ORDERED: LIDOCAINE JECT IV PRN (14:30)
[2022-10-04] MEDS ORDERED: POTASSIUM CHLORIDE IV PRN (14:30)
[2022-10-04] MEDS: ACETAMINOPHEN 325 MG TABLET PO PRN ×2 (14:55→22:26)
--- NOTE | 2022-10-04 14:55 | NUR ---
CALLED DR CALLE, TOLD THAT FAMILY OF PT WANTS TO SPEAK WITH HIM RE CONCERN ABT PT STILL SCREAMING A LOT. Addendum: 10/04/22 at 1537 by Andrea Day RN SAID HE WILL BE HERE IN 30 MINS. INFORMED PT'S SON AT BEDSIDE.
--- NOTE | 2022-10-04 14:58 | NUR ---
PT GIVEN TYLENOL: WILL CONT TO MONITOR PT.
--- NOTE | 2022-10-04 15:29 | NUR ---
PT SCREAMING HAS SUBSIDED. FAMILY AT BEDSIDE. WILL CONT TO MONITOR.
--- NOTE | 2022-10-04 15:48 | NUR ---
DR CALLE HERE TALKING TO PT'S SON AT BEDSIDE. OKAYED TO DOWNGRADE PT TO TELEMETRY.
--- NOTE | 2022-10-04 16:53 | NUR ---
CONSULT CALLED IN FOR DR MAURICIO: LEFT MESSAGE THRU VOICE MAIL.
--- NOTE | 2022-10-04 17:30 | NUR ---
PT'S FAMILY AT BEDSIDE. Addendum: 10/04/22 at 1731 by Andrea Day RN WRONG ENTRY: PLS DISREGARD THIS PT'S NOTES:
--- NOTE | 2022-10-04 18:11 | NUR ---
INCREASED TUBE FEEDING TO TARGET GOAL OF 40CC/HR. NO RESIDUAL NOTED.
--- NOTE | 2022-10-04 18:48 | NUR ---
DR [facility] INFORMED MD OF THE CONSULT.
--- NOTE | 2022-10-04 19:00 | NUR ---
ENDORSED TO NIGHT RN: VITALS WNL. PT QUIET AT THIS TIME. CONTINUED TO BE ON RESTRAINT, O2 3L PER NC.
[2022-10-04] MEDS: CYCLOBENZAPRINE HCL 10 MG TABLET (FLEXERIL) PO SCH (20:53)
[2022-10-04] MEDS: ATORVASTATIN 10 MG TABLET PO SCH (20:53)
[2022-10-04] MEDS: DOCUSATE SODIUM 100 MG CAPSULE PO SCH (20:53)
--- NOTE | 2022-10-04 22:57 | NUR ---
Pt was transfered to room 125 bed A and the nurse was given bedside report. Nurse recieveing report was advised that the patient has an order for CT/MRI tommorrow in the AM.
--- NOTE | 2022-10-05 02:06 | NUR ---
PT WAS ADMITTED FROM ICU TO TELE FLOOR FOR HX OF HYPOKALEMIA AND SEPSIS. SHE HAS NG TUBE RUNNING JEVITY 12. @30 ML/H TUBE FEEDING. SHE IS ANXIOUS ALERT ORIENTED X0. COMFORT MEASURES PROVIDED. PAIN MANAGMENT WAS RECEIVED . CALL LIGHT WITHIN REACH
[2022-10-05 05:19] VITALS: BP_SYST 142
[2022-10-05] MEDS: cefTRIAXone 1 GM in D5W 50 ML IV SCH (05:21)
[2022-10-05] MEDS: LEVOTHYROXINE SODIUM 0.05 MG TABLET PO SCH (06:06)
[2022-10-05] MEDS: metroNIDAZOLE 500 mg/NS 100 ML IV SCH ×3 (06:06→21:24)
[2022-10-05 06:32] LABS: BASOPHILS # (AUTO) 0.1 K/uL (0.0-0.2); BASOPHILS % (AUTO) 0.8 % (0.0-2.0); EOSINOPHILS # (AUTO) 0.6 K/uL (0.0-0.4); EOSINOPHILS % (AUTO) 3.5 % (0.0-4.0); HEMATOCRIT 31.2 % (36-48); HEMOGLOBIN 10.3 g/dL (12.0-16.0); LYMPHOCYTES # (AUTO) 1.6 K/uL (1.0-5.5); MEAN CORPUSCULAR HEMOGLOBIN 27 pg (27-31); MEAN CORPUSCULAR HGB CONC 33 % (32-36); MONOCYTES # (AUTO) 1.4 K/uL (0.0-1.0); MONOCYTES % (AUTO) 8.4 % (1.7-9.3); NEUTROPHILS # (AUTO) 12.7 K/uL (1.8-7.7); NEUTROPHILS % (AUTO) 77.3 % (40.0-70.0); PLATELET COUNT (AUTO) 385 K/uL (130-430); RED BLOOD CELL COUNT(AUTO) 3.76 MIL/uL (4.2-6.2); RED CELL DISTRIBUTION WIDTH 19.1 % (9.0-15.0); WHITE BLOOD COUNT (AUTO) 16.4 K/uL (4.8-10.8)
[2022-10-05 06:52] LABS: ALANINE AMINOTRANSFERASE 28 U/L (12-78); ALBUMIN 2.3 g/dL (3.4-4.8); ANION GAP 10 (5-15); ASPARTATE AMINOTRANSFERASE 29 U/L (10-37); C-REACTIVE PROTEIN QUANT 3.3 mg/dL (0-0.5); CALCIUM 8.1 mg/dL (8.4-11.0); CHLORIDE 106 mmol/L (98-107); CREATININE 1.02 mg/dL (0.55-1.30); GLUCOSE 85 mg/dL (70-99); THYROID STIMULATING HORMONE 5.06 uIu/mL (0.36-3.74); TOTAL BILIRUBIN 0.5 mg/dL (0.0-1.0); UREA NITROGEN, BLOOD 18 mg/dL (8-21); URIC ACID 4.9 mg/dL (2.4-7.0)
[2022-10-05 07:33] LABS: MEAN CORPUSCULAR VOLUME 83 fL (79.0-98.0)
[2022-10-05] MEDS: LORazepam 2 MG/ML VIAL IVP PRN ×2 (08:17→16:08)
--- NOTE | 2022-10-05 08:20 | NUR ---
INITIAL ROUNDS/ANXIOUS/SCREAMING Received pt awake alert x 1, screaming and anxious when touched/spoken to by staff. Attempted to make pt more comfortable, placed socks on feet, placed warm blanket on patient and repositioned pt with pillow support and heels off-loaded for skin care and comfort. Pt sill anxious and screaming-pt given Ativan as ordered for anxiety. Pt on soft wrist restraints. Pt has NG-Tube in place, placement verified. Jevity 1.2 infusing well at 30 ml/hr with no residual noted. IVF infusing well at ordered rate with no s/s infiltration to YULIA midline. Adkins draining to gravity with yellow urine. HOB elevated for aspiration precautions. Side rails up x3, bed alarm on for safety.
[2022-10-05 09:01] VITALS: BP_SYST 134
--- NOTE | 2022-10-05 10:02 | NUR ---
ROUNDS/ANXIETY Pt now resting quietly with no s/s resp distress, no s/s pain or discomfort. Pt still withdraws and moans when touched. All precautions remain in place.
[2022-10-05] MEDS: ALLOPURINOL 100 MG TABLET (ZYLOPRIM) PO SCH (10:16)
[2022-10-05] MEDS: METOPROLOL TARTRATE 50 MG TABLET PO SCH ×2 (10:17→21:25)
[2022-10-05] MEDS: DOCUSATE SODIUM 100 MG CAPSULE PO SCH ×2 (10:17→21:27)
[2022-10-05] MEDS: MULTIVITAMINS TAB 1 TABLET PO SCH (10:17)
[2022-10-05] MEDS: VERAPAMIL HCL 120 MG TABLET.SA PO SCH (10:17)
[2022-10-05] MEDS: SPIRONOLACTONE 50 MG TABLET (ALDACTONE) PO SCH (10:17)
[2022-10-05] MEDS: POLYETHYLENE GLYCOL 3350, 17 GM/ POWD.PACK PO SCH (10:18)
[2022-10-05] MEDS: KCL 20 mEq in D5W 1000 mL 1,000 ML IV SCH (10:29)
--- NOTE | 2022-10-05 11:14 | NUR ---
CONSULT NEUROLOGY ALOC VALARIE MCFARLANE SENT A TEXT MESSAGE TO DR MAURICIO
[2022-10-05 11:59] VITALS: BP_SYST 132
--- NOTE | 2022-10-05 12:18 | NUR ---
CALLED SON MRI INFO Called pt's son Jens [phone], left message for him to call me back to review the MRI questions.
[2022-10-05 12:41] LABS: CHOLESTEROL 64 mg/dL (<200); HDL CHOLESTEROL 34 mg/dL (>55); TRIGLYCERIDES 74 mg/dL (30-150)
--- NOTE | 2022-10-05 16:10 | NUR ---
CALLED MRI cancelled due to pt has pacemaker. Dr. Bhatti informed and order given for CT head.
--- NOTE | 2022-10-05 17:35 | NUR ---
TO CT Pt left floor via bed to CT in no distress. Pt's son Jens at bedside and updated on current plan. He is requesting an abd US to check on abd pain-will ask MD.
[2022-10-05] MEDS: D5/0.45 NS 1,000 ML IV SCH (18:00)
--- NOTE | 2022-10-05 18:03 | NUR ---
BACK FROM CT Pt back from CT in no distress. IVF now infusing well at ordered rate to YULIA midline. NG-Tube placement verified. Jevity 1.2 now infusing well at ordered rate via NG-Tube. All precautions remain in place.
[2022-10-05 18:29] VITALS: BP_SYST 125
--- NOTE | 2022-10-05 19:25 | NUR ---
CLOSING NOTE Pt resting quietly in bed with no s/s resp distress, no s/s pain or discomfort. IVF infusing well at ordered rate with no s/s infiltration to site. Jevity 1.2 infusing well at ordered rate via NG-Tube. Aspiration, skin and safety precautions remain in place. Endorsed care to night cleaner nurse, endorsed pt's son wants an abd ultrasound, but no time to call the doctor. Call light within reach.
[2022-10-05] MEDS: ATORVASTATIN 10 MG TABLET PO SCH (21:25)
[2022-10-05] MEDS: CYCLOBENZAPRINE HCL 10 MG TABLET (FLEXERIL) PO SCH (21:26)
[2022-10-05 23:17] VITALS: BP_SYST 129
[2022-10-06] VITALS: BP_SYST 160
[2022-10-06] MEDS: LORazepam 2 MG/ML VIAL IVP PRN ×3 (00:25→22:25)
[2022-10-06 04:11] VITALS: BP_SYST 145
--- NOTE | 2022-10-06 04:25 | NUR ---
PT LIES DOWN COMFORTABLE IN HER BED. PT HEART RHYTHM CONVERT TO AFIB WITH HR 150-170 FOR 5-10 MIN . MD WAS NOTIFIED. METOPROLOL 2.5 MG IVP WAS ORDERED. PT VOMITS TWICE. HEART RATE RETURN TO 99. NO SIGNS OF DISTRESS OR SHORTNESS OF BREATH. COMFORT MEASURE PROVIDED. PARTILA BED BATH PROVIDED TWICE . COMFORT MEASURES PROVIDED.
[2022-10-06] MEDS: cefTRIAXone 1 GM in D5W 50 ML IV SCH (05:47)
[2022-10-06] MEDS: D5/0.45 NS 1,000 ML IV SCH ×2 (05:52→14:19)
[2022-10-06] MEDS: metroNIDAZOLE 500 mg/NS 100 ML IV SCH ×3 (05:52→22:13)
[2022-10-06] MEDS: LEVOTHYROXINE SODIUM 0.05 MG TABLET PO SCH (05:53)
[2022-10-06 06:11] LABS: BASOPHILS # (AUTO) 0.1 K/uL (0.0-0.2); BASOPHILS % (AUTO) 0.6 % (0.0-2.0); EOSINOPHILS % (AUTO) 0.2 % (0.0-4.0); HEMATOCRIT 29.2 % (36-48); HEMOGLOBIN 9.8 g/dL (12.0-16.0); MEAN CORPUSCULAR HEMOGLOBIN 27 pg (27-31); MEAN CORPUSCULAR HGB CONC 34 % (32-36); MEAN CORPUSCULAR VOLUME 81 fL (79.0-98.0); MONOCYTES % (AUTO) 6.3 % (1.7-9.3); NEUTROPHILS # (AUTO) 14.2 K/uL (1.8-7.7); NEUTROPHILS % (AUTO) 86.9 % (40.0-70.0); PLATELET COUNT (AUTO) 381 K/uL (130-430); RED BLOOD CELL COUNT(AUTO) 3.59 MIL/uL (4.2-6.2); RED CELL DISTRIBUTION WIDTH 19.4 % (9.0-15.0); WHITE BLOOD COUNT (AUTO) 16.3 K/uL (4.8-10.8)
[2022-10-06 06:38] LABS: ANION GAP 10 (5-15); CALCIUM 7.7 mg/dL (8.4-11.0); CHLORIDE 108 mmol/L (98-107); CREATININE 0.88 mg/dL (0.55-1.30); GLUCOSE 106 mg/dL (70-99); UREA NITROGEN, BLOOD 9 mg/dL (8-21)
[2022-10-06 07:07] LABS: RA LATEX TURBID <10.0 IU/mL (<14.0)
--- NOTE | 2022-10-06 07:32 | NUR ---
OPENING NOTES: RECEIVED BEDSIDE SBAR FROM PM SHIFT NURSE, PATIENT IS RESTING IN BED WITH EYES CLOSED, NO S/S OF ANY DISTRESS, NON-LABOR BREATHING, BED AT LOW AND LOCKED POSITION CALL LIGHT IN REACH, ALL SAFETY CHECKS DONE AND WILL DO THOUGHT THE DAY, WILL MONITOR PATIENT PER ORDERS.
[2022-10-06 08:00] VITALS: BP_SYST 143
[2022-10-06] MEDS: ALLOPURINOL 100 MG TABLET (ZYLOPRIM) PO SCH (08:35)
[2022-10-06] MEDS: POLYETHYLENE GLYCOL 3350, 17 GM/ POWD.PACK PO SCH (08:35)
[2022-10-06] MEDS: VERAPAMIL HCL 120 MG TABLET.SA PO SCH (08:41)
[2022-10-06] MEDS: SPIRONOLACTONE 50 MG TABLET (ALDACTONE) PO SCH (08:41)
[2022-10-06] MEDS: MULTIVITAMINS TAB 1 TABLET PO SCH (08:42)
[2022-10-06] MEDS: METOPROLOL TARTRATE 50 MG TABLET PO SCH (08:42)
[2022-10-06] MEDS: DOCUSATE SODIUM 100 MG CAPSULE PO SCH (08:42)
[2022-10-06 11:49] VITALS: BP_SYST 136
[2022-10-06 12:06] LABS: ANTI NUCLEAR AB WITH REFLEX Negative (Negative)
[2022-10-06] MEDS ORDERED: SODIUM BICARBONATE 650 MG TABLET PO ONE (12:45)
[2022-10-06 14:06] LABS: CANCER AG, 125 22.6 U/mL (0.0-38.1); CARBOHYDRATE AG 19-9 39 U/mL (0-35); CEA 3.1 ng/mL (0.0-4.7)
[2022-10-06] MEDS ORDERED: COMMUNICATION ORDER XX ONE (14:30)
[2022-10-06] MEDS ORDERED: ACETAMINOPHEN 650 MG/20.3 ML UDC NG PRN (14:45)
[2022-10-06 15:36] VITALS: BP_SYST 140
--- NOTE | 2022-10-06 16:19 | NUR ---
Nutrition F/U Solar Installation Manager reviewed pts current EMR including diet Hx, physician notes, nursing notes, pertinent labs/meds/procedures, care trends, and care activity. Admitting Diagnosis Sepsis, Hypokalemia, Renal Failure PMH: Per EMR review, 87 YOF w/ PMH of HTN, CAD, atr fibr, CHF, hypothyroidism, GERD, anxiety, chronic indwelling Adkins catheter, and OA who is a resident of [facility]. Pt was brought in for eval on abnormal labs done at [facility] on [facility] -- they revealed WBC of 19.4, thrombocytosis w/ platelet count 652, hypokalemia w/ K 2.1, and elevated CRE 2.37. 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 09/28: Abd CT scan findings suspicious for rectal fecal impaction, umbilical hernia, cardiomegaly, cardiac pacemaker, and s/p cholecystectomy 10/03 ST swal. eval: Unable to demonstrate safe or effective swal. Recommend NPO w/ continued NG. Currently, pt is on restraints, abd is mildly distended w/ no peripheral edema. 10/06: HyperCa w/ multiple stanley lytic lesions and mass in base of bladder, most consistent w/ metastatic carcinoma. Recommend evaluation for biopsy and cystoscopy. I/O: 480 ml/1350 ml (-870 ml) Subjective Information Solar Installation Manager spoke w/ [employer]DOWN THREAD LASTER. Pt has been agitiated, so meds were given. Currently on Jevity 1.2 @ 40 w/ 5 mL of residual this morning. Updated [employer] that goal rate will be increased to 60 mL/hr to meet nutritional needs. Visual NFPE: No significant muscle or fat wasting. Pts legs look swollen d/t edema. Current Diet Order/Nutrition Support Jevity 1.2 @ 40 mL/hr (goal rate), Free Water Flush: 100mL q6h via NGT x 2 days Patient/Significant Other Unable To Verbalize Education Provided Not Indicated Pertinent Medications D5 NS @ 70 mL (286 kcals), Miralax, Colace, Spironolactone, Synthroid, Lipitor, Lopressor, MVI Pertinent Labs WBC 16.3H (trending up), K 2.4WNL, BUN 9WNL, Cre 0.88WNL, BG 106H (trending up), ALB 2.3L (trending down). Height (Feet) 5 feet Height (Inches) 2.00 inches Weight (Pounds) 130 pounds (Stable since 09/28) Patient Weight 58.967 kg Body Mass Index 23.77 kg/m2 %IBW 118 [place]/Adjusted Body Weight IBW: 110#/50 kg Recent Weight Change Unable to assess Last BM 10/06 Food Allergies Unable to assess Usual Diet At Home Unknown per nursing nutritional screening Skin Integrity Comment: Lion score: 13 (10/06) Wounds: no PIs/wounds (10/06) Edema: 1+ pitting on bilat. ankle (10/06) Current % PO NPO Estimated Energy Expenditure (kcals/day) 4142-9924 (30-35 kcal/kg CBW d/t sepsis) Estimated Protein Required (g/day) 71-88 (1.25-1.5 gm/kg CBW d/t FARHAD, sepsis) Estimated Fluid Required (l/day) Per physician d/t CHF Problem/Etiology/Signs/Symptoms *MODIFIED Suboptimal nutrition support R/T metabolic demands AEB TF prescription does not meet 85% of nutritional needs (*New). Inadequate oral intakes R/T suspected chewing/swallowing difficulty AEB negligible PO intake records and nursing report (*Resolved). Expected Outcomes/Goals Monitor nutrition support w/ goal of pt meeting >85% of estimated nutritional needs, labs trending WNL, bowel regime q1-3 days, and skin integrity/ wt maintenance. Dietitian Recommendations Consider Jevity 1.2 @ 60mL/hr (goal) via NGT: Provides: 1728 kcals, 80 g PRO, and total volume of 1162 mL daily. Meets: 98% lower est. Kcals needs, 91% upper est. PRO needs. Defer Free Water Flush to MD d/t CHF. Follow Up High Risk: F/U in 2-3days LP, MS, RD
--- NOTE | 2022-10-06 16:21 | NUR ---
Dietitian Recommendations Consider Jevity 1.2 @ 60mL/hr (goal) via NGT: Provides: 1728 kcals, 80 g PRO, and total volume of 1162 mL daily. Meets: 98% lower est. Kcals needs, 91% upper est. PRO needs. Defer Free Water Flush to MD d/t CHF. LP, MS, RD Please refer to Nutrition F/U for details.
--- NOTE | 2022-10-06 17:14 | NUR ---
ST EVALUATION COMPLETED. ST TX NOT INDICATED AT THIS TIME. PT UNABLE TO DEMONSTRATE A SAFE EFFECTIVE SWALLOW WITH THERMAL STIMULATION. RECOMMEND NPO WITH ALTERNATIVE MEANS OF NUTRITION.
--- NOTE | 2022-10-06 18:31 | NUR ---
CLOSING NOTES: PATIENT REMAIN STABLE THOUGHT THE DAY, BED AT LOW AND LOCKED POSITION CALL LIGHT IN REACH, NO S/S OF ANY DISTRESS RESTING IN BED WITH EYES OPEN WATCHING TV, ALL SAFETY CHECKS DONE AND MET. WILL GIVE PM SHIFT NURSE BEDSIDE SBAR.
[2022-10-06] MEDS: ATORVASTATIN 10 MG TABLET NG SCH (22:11)
[2022-10-06] MEDS: SODIUM BICARBONATE 650 MG TABLET NG SCH (22:12)
[2022-10-06] MEDS: METOPROLOL TARTRATE 50 MG TABLET NG SCH (22:12)
[2022-10-06] MEDS: DOCUSATE SODIUM 100 MG/10 ML UDC NG SCH (22:13)
[2022-10-06] MEDS: CYCLOBENZAPRINE HCL 10 MG TABLET (FLEXERIL) NG SCH (22:15)
[2022-10-06 22:56] VITALS: BP_SYST 125
--- NOTE | 2022-10-06 23:03 | NUR ---
PT VITALS ARE STABLE, PT SEEMS AGITATED HEART RATE 130, ATIVAN 1MG IVP WAS ADMINISTERED. PT SLEEPS COMFRTABLE IN HER BED. HEART RATE 97. NO SIGNS OF DISTRESS OR SHORTNESSS OF BREATH. COMFORT MEASURES ARE PROVIDED. SAFETY MEASURES ARE PROVIDED. CALL LIGHT WITHIN REACH
[2022-10-07] VITALS: BP_SYST 151
[2022-10-07] MEDS: cefTRIAXone 1 GM in D5W 50 ML IV SCH (04:03)
[2022-10-07] MEDS: metroNIDAZOLE 500 mg/NS 100 ML IV SCH ×3 (05:21→22:07)
[2022-10-07 05:24] VITALS: BP_SYST 146
[2022-10-07 06:14] LABS: BASOPHILS # (AUTO) 0.1 K/uL (0.0-0.2); BASOPHILS % (AUTO) 0.9 % (0.0-2.0); EOSINOPHILS # (AUTO) 0.3 K/uL (0.0-0.4); HEMATOCRIT 29.6 % (36-48); HEMOGLOBIN 9.7 g/dL (12.0-16.0); LYMPHOCYTES # (AUTO) 1.4 K/uL (1.0-5.5); LYMPHOCYTES % (AUTO) 10.2 % (20.5-51.5); MEAN CORPUSCULAR HEMOGLOBIN 27 pg (27-31); MEAN CORPUSCULAR HGB CONC 33 % (32-36); MEAN CORPUSCULAR VOLUME 82 fL (79.0-98.0); MONOCYTES # (AUTO) 1.3 K/uL (0.0-1.0); NEUTROPHILS # (AUTO) 10.9 K/uL (1.8-7.7); NEUTROPHILS % (AUTO) 77.9 % (40.0-70.0); PLATELET COUNT (AUTO) 389 K/uL (130-430); RED BLOOD CELL COUNT(AUTO) 3.62 MIL/uL (4.2-6.2)
[2022-10-07 06:35] LABS: ALANINE AMINOTRANSFERASE 22 U/L (12-78); ANION GAP 12 (5-15); ASPARTATE AMINOTRANSFERASE 22 U/L (10-37); CALCIUM 7.5 mg/dL (8.4-11.0); CHLORIDE 107 mmol/L (98-107); CREATININE 0.75 mg/dL (0.55-1.30); GLUCOSE 116 mg/dL (70-99); TOTAL BILIRUBIN 0.5 mg/dL (0.0-1.0); UREA NITROGEN, BLOOD 8 mg/dL (8-21)
[2022-10-07] MEDS: LEVOTHYROXINE SODIUM 0.05 MG TABLET NG SCH (07:07)
--- NOTE | 2022-10-07 07:49 | NUR ---
OPENING NOTES: RECEIVED BEDSIDE SBAR FROM PM SHIFT NURSE, PATIENT IS RESTING WELL WITH EYES CLOSED IN BED, NO S/S OF ANY DISTRESS, NON LABOR BREATHING BED AT LOW AND LOCKED POSITION CALL LIGHT IN REACH, ALL SAFETY CHECKS DONE AND WILL DO THOUGHT THE DAY, WILL CONT TO MONITOR PATIENT THOUGHT OUT THE DAY PER ORDERS.
[2022-10-07] MEDS: DOCUSATE SODIUM 100 MG/10 ML UDC NG SCH ×2 (08:49→22:05)
[2022-10-07] MEDS: VERAPAMIL HCL 80 MG TABLET NG SCH (08:49)
[2022-10-07] MEDS: SODIUM BICARBONATE 650 MG TABLET NG SCH ×2 (08:50→22:06)
[2022-10-07] MEDS: METOPROLOL TARTRATE 50 MG TABLET NG SCH ×2 (08:50→22:05)
[2022-10-07] MEDS: SPIRONOLACTONE 50 MG TABLET (ALDACTONE) NG SCH (08:52)
[2022-10-07] MEDS: POLYETHYLENE GLYCOL 3350, 17 GM/ POWD.PACK NG SCH (09:04)
[2022-10-07] MEDS: ALLOPURINOL 100 MG TABLET (ZYLOPRIM) NG SCH (09:04)
[2022-10-07] MEDS: MULTIVITAMINS TAB 1 TABLET NG SCH (09:04)
[2022-10-07] MEDS: D5/0.45 NS 1,000 ML IV SCH (09:05)
[2022-10-07 11:45] VITALS: BP_SYST 142
--- NOTE | 2022-10-07 15:39 | NUR ---
CONSULTATION PAGED REASON FOR CONSULTATION:CONFUSION WAS CONSULT CALLED?Y PERSON WHO WAS NOTIFIED:DARLENE CONSULTING PHYSICIAN:FRANKLIN NKOX RN INTERNSHIP SPECIALTY:TELE PSYCHE RN INTERNSHIP PHONE NUMBER:[phone] REQUESTING PHYSICIAN:JOANN WALKER
--- NOTE | 2022-10-07 15:56 | NUR ---
CONSULTATION PAGED REASON FOR CONSULTATION:PEG PLACEMENT WAS CONSULT CALLED?Y PERSON WHO WAS NOTIFIED:JENNIFER CONSULTING PHYSICIAN:MASON VAZQUEZ (/DEANNE ALDANA CIRCUIT RIDER) DIRECTOR OF GOLF SPECIALTY:GI DIRECTOR OF GOLF PHONE NUMBER:[phone] REQUESTING PHYSICIAN:LEONARD BECKHAM NP INSURANCE MEDICARE A & B
[2022-10-07 16:11] VITALS: BP_SYST 144
--- NOTE | 2022-10-07 16:33 | NUR ---
CASING BUILDER AT BEDSIDE, WITH FAMILY (SON)
--- NOTE | 2022-10-07 16:57 | NUR ---
SON (CAROLA JAIRO) SIGNED CONSENT FOR PEG TUBE PLACEMENT. WILL PLACE IN CHART
[2022-10-07] MEDS: CYCLOBENZAPRINE HCL 10 MG TABLET (FLEXERIL) NG SCH (22:06)
[2022-10-07] MEDS: ATORVASTATIN 10 MG TABLET NG SCH (22:06)
[2022-10-08] VITALS (10 sets, daily range): BP systolic 106–155
[2022-10-08] MEDS: D5/0.45 NS 1,000 ML IV SCH ×3 (00:27→23:31)
[2022-10-08] MEDS: LORazepam 2 MG/ML VIAL IVP PRN ×2 (00:28→09:30)
--- NOTE | 2022-10-08 01:05 | NUR ---
PT VITALS ARE STABLE. PT IS CONFUSED AND AGITATED , ATIVAN 1MG IVP ADMINISTERED. PT LIES COMFRTABEL IN HER BED , SCHEDULED MEDICATION ADMINISTERED. COMFORT MEASURES ARE PROVIDED. SAFETY MEASURES ARE PROVIDED
[2022-10-08] MEDS: metroNIDAZOLE 500 mg/NS 100 ML IV SCH ×3 (05:09→22:40)
[2022-10-08] MEDS: METOPROLOL TARTRATE 5 MG/5 ML VIAL IVP PRN (05:54)
[2022-10-08] MEDS: LEVOTHYROXINE SODIUM 0.05 MG TABLET NG SCH (06:36)
[2022-10-08 07:13] LABS: ALANINE AMINOTRANSFERASE 21 U/L (12-78); ANION GAP 18 (5-15); ASPARTATE AMINOTRANSFERASE 20 U/L (10-37); CALCIUM 7.7 mg/dL (8.4-11.0); CHLORIDE 104 mmol/L (98-107); CREATININE 1.54 mg/dL (0.55-1.30); GLUCOSE 151 mg/dL (70-99); TOTAL BILIRUBIN 0.6 mg/dL (0.0-1.0); UREA NITROGEN, BLOOD 14 mg/dL (8-21)
--- NOTE | 2022-10-08 07:30 | NUR ---
RECEIVED PT ,PT IS NON VERBAL, NG TUBE INTACT,PATENT,RESIDUAL IS>100. NOTED RR RATE OF 52, PER REPORT PT IS USUALLY LIKE THAT, JUST NEED TO WAIT UNTIL RR AND HR GOES DOWN. WILL CONT TO MONITOR PT.
[2022-10-08 07:37] LABS: HEMATOCRIT 37.3 % (36-48); HEMOGLOBIN 12.6 g/dL (12.0-16.0); MEAN CORPUSCULAR HEMOGLOBIN 28 pg (27-31); MEAN CORPUSCULAR HGB CONC 34 % (32-36); MEAN CORPUSCULAR VOLUME 83 fL (79.0-98.0); PLATELET COUNT (AUTO) 656 K/uL (130-430); RED CELL DISTRIBUTION WIDTH 19.9 % (9.0-15.0)
[2022-10-08 08:09] LABS: WHITE BLOOD COUNT (AUTO) 35.2 K/uL (4.8-10.8)
--- NOTE | 2022-10-08 08:16 | NUR ---
PAGED DR MONAE FOR ELEVATED WBC, THEN REQUESTED UNIT SEC LINA TO CALL AGAIN.
--- NOTE | 2022-10-08 08:37 | NUR ---
ID MD DR MONAE WAS CALLED RE: TRENDING UP WBC (35.2). SPOKE TO LOLA.
[2022-10-08] MEDS: MULTIVITAMINS TAB 1 TABLET NG SCH (09:08)
[2022-10-08] MEDS: POLYETHYLENE GLYCOL 3350, 17 GM/ POWD.PACK NG SCH (09:08)
[2022-10-08] MEDS: ALLOPURINOL 100 MG TABLET (ZYLOPRIM) NG SCH (09:08)
[2022-10-08] MEDS: SODIUM BICARBONATE 650 MG TABLET NG SCH (09:08)
[2022-10-08] MEDS: SPIRONOLACTONE 50 MG TABLET (ALDACTONE) NG SCH (09:09)
[2022-10-08] MEDS: DOCUSATE SODIUM 100 MG/10 ML UDC NG SCH ×2 (09:12→22:36)
[2022-10-08] MEDS: METOPROLOL TARTRATE 50 MG TABLET NG SCH ×2 (09:12→22:38)
[2022-10-08] MEDS: VERAPAMIL HCL 80 MG TABLET NG SCH (09:13)
--- NOTE | 2022-10-08 09:30 | NUR ---
PT GIVEN ATIVAN, FOR RR OF48. WILL CONT TO MONITOR.
[2022-10-08 09:33] LABS: BAND % (MANUAL) 3 % (0-6); BASOPHILS % (MANUAL) 0 % (0-2); EOSINOPHILS % (MANUAL) 0 % (0-7); LYMPHOCYTES % (MANUAL) 1 % (20-46); MONOCYTES % (MANUAL) 8 % (0-11)
--- NOTE | 2022-10-08 10:48 | NUR ---
CONSULTATION PAGED/CALLED Reason for Consultation: [] RAPID BREATHING Person Who was Notified: [] LOLA Consulting Physician: [] DR GRIMALDO SAP BW BI DEVELOPER FOR DR ANDERSON Art Educator Specialty: [] PULMO Ordering Physician: [] DR CALLE
--- NOTE | 2022-10-08 11:08 | NUR ---
DR CALLE WAS CALLED AND INFORMED THAT RR IS STILL HIGH, NEW ORDERS GIVEN AND CARRIED OUT. DR GRIMALDO WAS CONSULTED AND GAVE NEW ORDER. DR MONAE WAS ALSO INFORMED THAT WBC IS ELEVATED AT 35 AND NEW ORDERS GIVEN AND CARRIED OUT.
--- NOTE | 2022-10-08 11:29 | NUR ---
[place] PUBLIC RELATIONS ACCOUNT EXECUTIVE DR GRIMALDO WAS CALLED RE: ABG RESULTS. SPOKE TO LOLA.
--- NOTE | 2022-10-08 11:37 | NUR ---
DR GRIMALDO INFORMED OF ABG RESULTS. NEW ORDERS GIVEN AND CARRIED OUT.
[2022-10-08] MEDS ORDERED: SODIUM BICARBONATE 8.4% JECT 50 MEQ/50 ML SYRINGE IVP ONE ×2 (11:45→19:00)
--- NOTE | 2022-10-08 12:15 | NUR ---
pt was given slow push sodium [id number] as ordered.
--- NOTE | 2022-10-08 12:18 | NUR ---
Residual checked from g-tube. Residualwas 510ml
[2022-10-08 12:38] LABS: BASOPHILS # (AUTO) 0.1 K/uL (0.0-0.2); BASOPHILS % (AUTO) 0.2 % (0.0-2.0); HEMATOCRIT 44.3 % (36-48); HEMOGLOBIN 13.3 g/dL (12.0-16.0); LYMPHOCYTES # (AUTO) 1.9 K/uL (1.0-5.5); LYMPHOCYTES % (AUTO) 3.5 % (20.5-51.5); MEAN CORPUSCULAR HEMOGLOBIN 27 pg (27-31); MEAN CORPUSCULAR HGB CONC 30 % (32-36); MEAN CORPUSCULAR VOLUME 89 fL (79.0-98.0); MONOCYTES # (AUTO) 2.1 K/uL (0.0-1.0); MONOCYTES % (AUTO) 3.9 % (1.7-9.3); NEUTROPHILS # (AUTO) 49.5 K/uL (1.8-7.7); PLATELET COUNT (AUTO) 577 K/uL (130-430); RED BLOOD CELL COUNT(AUTO) 4.97 MIL/uL (4.2-6.2); RED CELL DISTRIBUTION WIDTH 20.6 % (9.0-15.0)
[2022-10-08 12:42] LABS: WHITE BLOOD COUNT (AUTO) 53.6 K/uL (4.8-10.8)
[2022-10-08 12:43] LABS: NEUTROPHILS % (AUTO) 92.4 % (40.0-70.0)
--- NOTE | 2022-10-08 13:00 | NUR ---
TUBE FEEDING RESTATRTED AT 40 CC/HR. WILL CONT TO MONITOR PT.
--- NOTE | 2022-10-08 13:51 | NUR ---
paged dr garcia for critical lab values, lactic = 8 and wbc 54.
[2022-10-08] MEDS ORDERED: NACL 0.9% 1,000 ML IV ONE (14:00)
--- NOTE | 2022-10-08 15:05 | NUR ---
REPAGED DR Komal MONAE. HAS NOT CALLED SINCE LAST PAGE.
--- NOTE | 2022-10-08 15:16 | NUR ---
DR MONAE IS HERE MAKING MD TANIKA MADE AWARE OF THE LA OF 8 AND WBC OR 53.6.
[2022-10-08] MEDS ORDERED: 0.45% NS 500 ML IV ONE (15:30)
--- NOTE | 2022-10-08 15:53 | NUR ---
Nutrition F/U Floral Artist reviewed pts current EMR including diet hx, physician notes, nursing notes, pertinent labs/meds/procedures, care trends and care activity. Admitting Diagnosis Sepsis, Hypokalemia, Renal Failure PMH: Per EMR review, 87 YOF w/ PMH of HTN, CAD, atr fibr, CHF, hypothyroidism, GERD, anxiety, chronic indwelling Adkins catheter, and OA who is a resident of [facility]. Pt was brought in for eval on abnormal labs done at [facility] on 09/26 -- they revealed WBC of 19.4, thrombocytosis w/ platelet count 652, hypokalemia w/ K 2.1, and elevated CRE 2.37. 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 10/06: HyperCa w/ multiple stanley lytic lesions and mass in base of bladder, most consistent w/ metastatic carcinoma. Recommend evaluation for biopsy and cystoscopy. I/O: 1200mL/1850mL (-650mL) - Acute anemia d/t GI bleeding. Melena w/ secondary to rectal ulcers. 10/07: FARHAD (improving) * TF residual amount: 110mL (trending up) Subjective Information Floral Artist spoke w/ primary RN (Navid) and he said pt is unresponsive and in poor condition. TF was running at 35 mL/hr, but pt had a tight abd distention d/t residual amount. TF was stopped and over 500 mL of residuals were collected. RN waited for an hour to resume TF. Currently, pt is at 40 mL/hr and RN will not increase to 60 mL/hr. Current Diet Order/Nutrition Support Jevity 1.2 @ 60 mL/hr (goal rate), Free Water Flush: 100mL q6h via NGT x 2 days Patient/Significant Other Unable To Verbalize Education Provided Not Indicated Pertinent Medications D5 NS @ 70 mL (286 kcals), Miralax, Colace, Spironolactone, Synthroid, Lipitor, Lopressor, MVI, Verapamil. Pertinent Labs WBC 53.6H* (trending up), K 4.2WNL, BUN 14WNL, Cre 1.54H (trending down), BG 151H (trending up), Alb 2.0L (trending down), Na 133L (trending down). Height (Feet) 5 feet Height (Inches) 2.00 inches Weight (Pounds) 130 pounds (Stable since 09/30) Patient Weight 58.967 kg Body Mass Index 23.77 kg/m2 %IBW 118 [place]/Adjusted Body Weight IBW: 110#/50 kg Recent Weight Change Unable to assess Last BM 10/08 x 4 Food Allergies Unable to assess Usual Diet At Home Unknown per nursing nutritional screening Skin Integrity Comment: Lion score: 13 Wounds: Ecchymosis on L right hand and L right upper arm; erythema on sacrum. Edema: None noted Current % PO NPO Estimated Energy Expenditure (kcals/day) 1158-7804 (30-35 kcal/kg CBW [60kg] d/t sepsis) Estimated Protein Required (g/day) 71-88 (1.25-1.5 gm/kg CBW d/t FARHAD, sepsis) Estimated Fluid Required (l/day) Per physician d/t CHF Problem/Etiology/Signs/Symptoms *MODIFIED* Inappropriate EN formula R/T suspected tube feeding intolerance AEB increased residual output, Floral Artist and RN witness +500mL residual collected along w/ tighten abd distention (*New). Altered nutrition-related lab values R/T catabolic illness AEB WBC 35.2H* (trending up), K 4.2WNL, BUN 14WNL, Cre 1.54H (trending down), BG 151H (trending up), Na 133L (trending down) (*New). Suboptimal nutrition support R/T metabolic demands AEB TF prescription does not meet 85% of nutritional needs (*Resolved). Inadequate oral intakes R/T suspected chewing/swallowing difficulty AEB negligible PO intake records and nursing report (*Resolved). Expected Outcomes/Goals Monitor tolerance of nutrition support, residual output, labs trending WNL, bowel regime q1-3 days, and skin integrity/ wt maintenance. Dietitian Recommendations Consider Vital AF 1.2 @ 60mL/hr (goal) via NGT, if pt's residuals remain high: Provides: 1728 kcals, 108 g PRO, and total volume of 1767 mL daily. Meets: 98% lower est. Kcals needs, 123% upper est. PRO needs. Defer Free Water Flush to MD d/t CHF. Follow Up High Risk: F/U in 2-3days GS, MPH, RD
[2022-10-08] MEDS: VANCOMYCIN HCL ORAL SOLUTION 125 MG/5 ML, 150 ML GT SCH ×2 (16:56→22:35)
--- NOTE | 2022-10-08 17:05 | NUR ---
SHABNAM HALL TOGETHER WITH ALEE BADILLO, CHANGE THE PT'S ORTEGA CATH ORDERED. THERE WAS NO OUTPUT.
--- NOTE | 2022-10-08 19:07 | NUR ---
DR. WILLS WAS HERE AND SEEN PT, NEW ORDERS GIVEN.
--- NOTE | 2022-10-08 20:00 | NUR ---
RECEIVED PATIENT FROM [facility], TRANSFERRED BECAUSE OF INCREASED RESPIRATORY RATE. EYES CLOSED, NOT FOLLOWING COMMANDS. ON BILATERAL WRIST RESTRAINTS, NOT FOLLOWING COMMANDS, TENDENCY TO PULL OUT TUBES. PATIENT HAS O2 2LPM PER NC, SAT NOT APPRECIATE, BOTH HANDS AND EARLOBES ARE COLD, JORGE LUIS HUGGER PROVIDED. PLASTICS PRODUCTION MACHINE OPERATOR IS SHOWING NST. PULSES ARE PALPABLE, BLOOD PRESSURE WDL.IVF OF D5W WITH 2 AMPS NAHCO3 STARTED AT 125 ML/HR VIA RUE MIDLINE. ABDOMEN IS DISTENDED, NGT CLAMPED DURING TRANSFER, WILL CONNECT TO LOW INTERMITTENT SUCTION. NGT DRAINAGE IS GREENISH IN COLOR. ORTEGA INTACT AND PATENT, DRAINING TRENT COLOR URINE. TEMP 97.8
--- NOTE | 2022-10-08 20:31 | NUR ---
pt WBCS 55 , FEEDING IS ON HOLD.SHE IS ON INTERMITTENT LOW SUCTION , PT TRANSFERRED TO ICU , PT REPORT ENDORSED TO ICU NURSE. FAMILY MEMBER( SON : CAROLA ) WAS NOTIFIED WITH PT TRANSFER.
[2022-10-08] MEDS: SODIUM BICARBONATE 8.4% JECT 100 MEQ in D5W 1,000 ML IVP SCH (20:57)
[2022-10-08] MEDS: CYCLOBENZAPRINE HCL 10 MG TABLET (FLEXERIL) NG SCH (21:00)
[2022-10-08] MEDS: ATORVASTATIN 10 MG TABLET NG SCH (22:37)
[2022-10-08] MEDS: PIPERACILLIN/TAZO 2.25G/DEX-IS 50 ML IV SCH (22:41)
[2022-10-09] VITALS (23 sets, daily range): BP systolic 98–147
--- NOTE | 2022-10-09 00:10 | NUR ---
PATIENT'S HEART RATE IS > 160. LOPRESSOR 2.5 MG IVP GIVEN, BP 160/72. HEART RATE DROPPED TO 142-144/MIN.
[2022-10-09] MEDS: METOPROLOL TARTRATE 5 MG/5 ML VIAL IVP PRN (00:26)
[2022-10-09] MEDS: LORazepam 2 MG/ML VIAL IVP PRN (00:27)
--- NOTE | 2022-10-09 00:40 | NUR ---
CALLED EX[facility]ANGE TO TALK TO DR. CALLE, MADE HIM AWARE OF PATIENT'S HEART RATE STAYING IN THE 142-144/MIN AFTER LOPRESSOR PRN GIVEN. HE SAID TO NOTIFY DR. NATHAN. MORPHINE ORDERED 1 MG IVP FOR SEVERE PAIN.
--- NOTE | 2022-10-09 00:44 | NUR ---
NOTIFIED DR. NATHAN OF PATIENT'S HEART RATE AFTER LOPRESSOR PRN GIVEN, HE ORDERED TO INCREASE THE DOSE TO 5MG IVP Q 4 HOURS INSTEAD OF Q 6 HOURS, HOLD IS SBP IS LESS THAN 110.
[2022-10-09] MEDS ORDERED: NALOXONE HCL 0.4 MG/ML AMP (NARCAN) IVP PRN (01:00)
[2022-10-09] MEDS ORDERED: MORPHINE 2 MG/ML INJ. SYRINGE IVP PRN (01:00)
[2022-10-09] MEDS ORDERED: MORPHINE 2 MG/ML INJ. SYRINGE ONE (01:13)
[2022-10-09] MEDS ORDERED: dilTIAZem HCL IVP 5 MG/ML VIAL IVP PRN (01:30)
[2022-10-09] MEDS: SODIUM BICARBONATE 8.4% JECT 100 MEQ in D5W 1,000 ML IVP SCH ×3 (03:48→17:50)
[2022-10-09] MEDS: PIPERACILLIN/TAZO 2.25G/DEX-IS 50 ML IV SCH ×3 (05:14→21:08)
[2022-10-09] MEDS: metroNIDAZOLE 500 mg/NS 100 ML IV SCH (05:15)
[2022-10-09 05:28] LABS: HEMATOCRIT 33.9 % (36-48); MEAN CORPUSCULAR HEMOGLOBIN 27 pg (27-31); MEAN CORPUSCULAR HGB CONC 33 % (32-36); MEAN CORPUSCULAR VOLUME 83 fL (79.0-98.0); PLATELET COUNT (AUTO) 362 K/uL (130-430); RED CELL DISTRIBUTION WIDTH 20.6 % (9.0-15.0)
[2022-10-09 05:34] LABS: INR 1.9 (0.8-1.2); PROTHROMBIN TIME 19.3 SECS (9.5-12.5)
[2022-10-09 05:45] LABS: ALANINE AMINOTRANSFERASE 28 U/L (12-78); ALBUMIN 1.8 g/dL (3.4-4.8); ANION GAP 17 (5-15); ASPARTATE AMINOTRANSFERASE 40 U/L (10-37); CALCIUM 7.9 mg/dL (8.4-11.0); CHLORIDE 104 mmol/L (98-107); CREATININE 2.63 mg/dL (0.55-1.30); GLUCOSE 119 mg/dL (70-99); PHOSPHORUS 3.4 mg/dL (2.7-4.5); TOTAL BILIRUBIN 0.6 mg/dL (0.0-1.0); UREA NITROGEN, BLOOD 26 mg/dL (8-21)
[2022-10-09 05:57] LABS: WHITE BLOOD COUNT (AUTO) 38.4 K/uL (4.8-10.8)
[2022-10-09 06:03] LABS: BAND % (MANUAL) 8 % (0-6); BASOPHILS % (MANUAL) 0 % (0-2); BLASTS, MANUAL % 1 % (0-0); EOSINOPHILS % (MANUAL) 0 % (0-7); LYMPHOCYTES % (MANUAL) 3 % (20-46); MONOCYTES % (MANUAL) 4 % (0-11)
[2022-10-09] MEDS: LEVOTHYROXINE SODIUM 0.05 MG TABLET NG SCH (06:51)
[2022-10-09] MEDS: D5/0.45 NS 1,000 ML IV SCH (07:56)
[2022-10-09] MEDS: VANCOMYCIN HCL ORAL SOLUTION 125 MG/5 ML, 150 ML GT SCH ×4 (08:57→21:00)
[2022-10-09] MEDS: VERAPAMIL HCL 80 MG TABLET NG SCH (08:59)
[2022-10-09] MEDS: METOPROLOL TARTRATE 50 MG TABLET NG SCH ×2 (09:00→21:00)
[2022-10-09] MEDS: ALLOPURINOL 100 MG TABLET (ZYLOPRIM) NG SCH (09:02)
[2022-10-09] MEDS: MULTIVITAMINS TAB 1 TABLET NG SCH (09:02)
[2022-10-09] MEDS: POLYETHYLENE GLYCOL 3350, 17 GM/ POWD.PACK NG SCH (09:03)
[2022-10-09] MEDS: DOCUSATE SODIUM 100 MG/10 ML UDC NG SCH ×2 (09:03→21:00)
[2022-10-09] MEDS ORDERED: GASTROGRAFIN 120 ML ONE ×2 (09:39→09:41)
[2022-10-09] MEDS: SPIRONOLACTONE 50 MG TABLET (ALDACTONE) NG SCH (09:59)
--- NOTE | 2022-10-09 10:10 | NUR ---
Called Dr. Mcfarland, A with a consult,spoke with Quin from the exchange
--- NOTE | 2022-10-09 19:30 | NUR ---
RECEIVED AWAKE, NOT FOLLOWING ANY COMMANDS. PATIENT HAS BILATERAL WRIST RESTRAINTS ON TO PREVENT PULLING OUT TUBES. ON 2LPM/NC O2. SAT 98%. GAS ENGINEER IS SHOWING ATRIAL FIB, PALPABLE PULSES. IVF OF D5W WITH 2 AMPS OF NAHCO3 INFUSING AT 125ML/HR VIA RIGHT UPPER ARM MIDLINE. ABDOMEN IS SLIGHTLY DISTENDED. NGT TO LOW INTERMITTENT SUCTION, DRAINING LIGHT BROWN GASTRIC SECRETIONS IN MODERATE AMOUNT. FOLWY INTACT AND PATENT, DRAINING TO TRENT COLOR URINE.AFEBRILE.
[2022-10-09 19:38] LABS: BILIRUBIN,URINE NEGATIVE (NEGATIVE); BLOOD, URINE 2+ (NEGATIVE); COLOR,URINE YELLOW (YELLOW); GLUCOSE,URINE NEGATIVE (NEGATIVE); KETONES,URINE NEGATIVE (NEGATIVE); LEUKOCYTE ESTERASE ,URINE 1+ (NEGATIVE); NITRITE, URINE POSITIVE (NEGATIVE); PH,URINE 5.5 (5.0-8.0); PROTEIN URINE 1+ (NEGATIVE); UROBILINOGEN,URINE 0.2 (0.2-1.0)
[2022-10-09 19:40] LABS: CLARITY/URINE HAZY (CLEAR)
[2022-10-09 19:55] LABS: BACTERIA,URINE RARE /HPF (None Seen); WBC,URINE 20-50 /HPF (0-3); YEAST,URINE Moderate /HPF (None Seen)
[2022-10-09 19:56] LABS: MUCUS,URINE 1+ /LPF (None Seen)
[2022-10-09] MEDS: CYCLOBENZAPRINE HCL 10 MG TABLET (FLEXERIL) NG SCH (21:00)
[2022-10-09] MEDS: ATORVASTATIN 10 MG TABLET NG SCH (21:00)
[2022-10-10] VITALS (21 sets, daily range): BP systolic 91–130
[2022-10-10] MEDS: FLUCONAZOLE 100 mg/ NS 50 ML IV SCH (01:00)
[2022-10-10] MEDS: SODIUM BICARBONATE 8.4% JECT 100 MEQ in D5W 1,000 ML IVP SCH ×2 (01:36→10:54)
[2022-10-10] MEDS: PIPERACILLIN/TAZO 2.25G/DEX-IS 50 ML IV SCH ×3 (05:14→21:48)
[2022-10-10 05:50] LABS: ANION GAP 8 (5-15); CALCIUM 7.1 mg/dL (8.4-11.0); CHLORIDE 98 mmol/L (98-107); CREATININE 2.32 mg/dL (0.55-1.30); GLUCOSE 126 mg/dL (70-99); UREA NITROGEN, BLOOD 33 mg/dL (8-21)
[2022-10-10] MEDS: LEVOTHYROXINE SODIUM 0.05 MG TABLET NG SCH (07:00)
--- NOTE | 2022-10-10 07:05 | NUR ---
RECEIVED PATIENT FROM NIGHT NURSE, PATIENT RESTING EYES CLOSED IN BED, CHEST RISE AND FALL OBSERVED, NO S/SX DISTRESS.
[2022-10-10 07:40] LABS: BASOPHILS % (AUTO) 0.1 % (0.0-2.0); EOSINOPHILS # (AUTO) 0.1 K/uL (0.0-0.4); EOSINOPHILS % (AUTO) 0.2 % (0.0-4.0); HEMATOCRIT 30.3 % (36-48); LYMPHOCYTES # (AUTO) 1.2 K/uL (1.0-5.5); LYMPHOCYTES % (AUTO) 3.6 % (20.5-51.5); MEAN CORPUSCULAR HEMOGLOBIN 27 pg (27-31); MEAN CORPUSCULAR HGB CONC 33 % (32-36); MEAN CORPUSCULAR VOLUME 82 fL (79.0-98.0); MONOCYTES # (AUTO) 1.5 K/uL (0.0-1.0); MONOCYTES % (AUTO) 4.4 % (1.7-9.3); NEUTROPHILS # (AUTO) 31.7 K/uL (1.8-7.7); PLATELET COUNT (AUTO) 319 K/uL (130-430); RED BLOOD CELL COUNT(AUTO) 3.71 MIL/uL (4.2-6.2); RED CELL DISTRIBUTION WIDTH 20.6 % (9.0-15.0)
[2022-10-10] MEDS ORDERED: POTASSIUM CHLORIDE 40 MEQ in NS 250 ML IV ONE (08:00)
[2022-10-10] MEDS ORDERED: METOPROLOL TARTRATE 5 MG/5 ML VIAL IVP PRN (08:00)
[2022-10-10 08:13] LABS: WHITE BLOOD COUNT (AUTO) 34.6 K/uL (4.8-10.8)
[2022-10-10 08:14] LABS: NEUTROPHILS % (AUTO) 91.7 % (40.0-70.0)
[2022-10-10] MEDS: VANCOMYCIN HCL ORAL SOLUTION 125 MG/5 ML, 150 ML GT SCH (09:00)
[2022-10-10] MEDS: MULTIVITAMINS TAB 1 TABLET NG SCH (09:00)
[2022-10-10] MEDS: METOPROLOL TARTRATE 50 MG TABLET NG SCH ×2 (09:00→21:00)
[2022-10-10] MEDS: VERAPAMIL HCL 80 MG TABLET NG SCH (09:00)
[2022-10-10] MEDS: POLYETHYLENE GLYCOL 3350, 17 GM/ POWD.PACK NG SCH (09:00)
[2022-10-10] MEDS: DOCUSATE SODIUM 100 MG/10 ML UDC NG SCH ×2 (09:00→21:00)
[2022-10-10] MEDS: ALLOPURINOL 100 MG TABLET (ZYLOPRIM) NG SCH (09:00)
[2022-10-10] MEDS: SPIRONOLACTONE 50 MG TABLET (ALDACTONE) NG SCH (09:00)
--- NOTE | 2022-10-10 09:40 | NUR ---
Page out to Dr. Kim, spoke with exchange.
--- NOTE | 2022-10-10 09:54 | NUR ---
Patient's son, Jens Treviño, return call to unit. Informed Jens regarding Dr. Mcfarland's rounds and suggestion of surgery for small bowel obstruction. Provided Jens with Dr. Mcfarland's office number [phone] to follow up with obtaining informed consent.
[2022-10-10] MEDS ORDERED: CEFAZOLIN 1 GM IVPB PREMIX 50 ML IV ONE (10:00)
--- NOTE | 2022-10-10 10:03 | NUR ---
Witnessed consent for surgery with 2nd RN from patient's son, Jens Treviño. All questions answered.
[2022-10-10] MEDS ORDERED: PHYTONADIONE 10 MG/ML AMP SUBCUT ONE (11:00)
--- NOTE | 2022-10-10 12:41 | NUR ---
Patient off unit to OR for surgery
[2022-10-10] MEDS ORDERED: WATER FOR IRRIGATION,STERILE 1,000 ML IRRIG.SOLN IR ONE (12:55)
[2022-10-10] MEDS ORDERED: fentaNYL CITRATE/PF 100 MCG/2 ML AMP ONE (12:55)
[2022-10-10] MEDS ORDERED: DESFLURANE 15 MIN GAS INH ONE (12:55)
[2022-10-10] MEDS ORDERED: ROCURONIUM BROMIDE 10 MG/ML (ZEMURON) ONE (12:55)
[2022-10-10] MEDS ORDERED: NS IRRIG SOLN 1000 ML IR ONE (12:55)
[2022-10-10] MEDS ORDERED: LR 1,000 ML IV.SOLN IV ONE (12:55)
[2022-10-10] MEDS ORDERED: SUGAMMADEX SODIUM 200 MG/2 ML VIAL IV ONE (12:55)
[2022-10-10] MEDS ORDERED: KETOROLAC TROMETHAMINE 30 MG VIAL ONE (12:55)
[2022-10-10] MEDS ORDERED: PROPOFOL 200MG/ 20ML VIAL (DIPRIVAN) IV ONE (12:55)
[2022-10-10] MEDS ORDERED: METOPROLOL TARTRATE 5 MG/5 ML VIAL ONE (12:55)
[2022-10-10] MEDS ORDERED: DEXAMETHASONE SOD PHOSPHATE 4 MG/ML VIAL ONE (12:55)
[2022-10-10] MEDS ORDERED: PHENYLEPHRINE HCL 10 MG/ML VIAL (NEOSYNEPHRINE) ONE (12:55)
[2022-10-10] MEDS ORDERED: MIDAZOLAM HCL 5 MG/5 ML VIAL ONE (12:55)
[2022-10-10] MEDS ORDERED: ONDANSETRON HCL 4 MG/2 ML VIAL ONE (12:55)
[2022-10-10] MEDS ORDERED: BUPIVACAINE LIPOSOME/PF 266 MG/20 ML VIAL INFIL ONE (13:22)
[2022-10-10] MEDS ORDERED: MEPERIDINE HCL/PF 25 MG/ML DISP.SYRIN IVP PRN (13:45)
[2022-10-10] MEDS ORDERED: hydrALAZINE HCL 20 MG/ML VIAL IVP PRN (13:45)
[2022-10-10] MEDS ORDERED: HYDROmorphone 1 MG/ML INJ. CARTRIDGE IVP PRN ×2 (13:45)
[2022-10-10] MEDS ORDERED: LABETALOL 100 MG/ 20ML VIAL IVP PRN (13:45)
[2022-10-10] MEDS ORDERED: LR 1,000 ML IV SCH (13:45)
[2022-10-10] MEDS ORDERED: ACETAMINOPHEN I.V. 1000 MG 100 ML IV ONE (13:48)
--- NOTE | 2022-10-10 15:20 | NUR ---
PATIENT BACK FROM PACU UNIT, RECEIVED REPORT FROM SHABNAM SUMMERS. PATIENT IS RESTING EYES CLOSED, BREATHING PATTERN REGULAR AND UNLABORED. POST VITAL SIGNS 104 HEART RATE, 104/55 BLOOD PRESSURE, 97.4 TEMP, 24 RR, 97%.
--- NOTE | 2022-10-10 15:50 | NUR ---
Dr. Saez informed about pt's surgery, NPO status, and vancomycin order. New orders made to stop vancomycin.
--- NOTE | 2022-10-10 19:00 | NUR ---
REPORT GIVEN TO NIGHT NURSE, PATIENT IS RESTING IN BED EYES CLOSED, CHEST RISE AND FALL OBSERVED. BREATHING PATTERN REGULAR AND UNLABORED. SAFETY MEASURES IN PLACE, NEEDS MET DURING SHIFT. ENDORSEMENTS MADE TO NIGHT RN.
[2022-10-10] MEDS: D5NS 1,000 ML IV SCH (19:40)
[2022-10-10] MEDS: ATORVASTATIN 10 MG TABLET NG SCH (21:00)
[2022-10-10] MEDS: CYCLOBENZAPRINE HCL 10 MG TABLET (FLEXERIL) NG SCH (21:00)
[2022-10-11] VITALS (20 sets, daily range): BP systolic 98–142
[2022-10-11] MEDS ORDERED: FLUCONAZOLE 200 mg/ NS 100 ML IV ONE (00:48)
[2022-10-11] MEDS: D5NS 1,000 ML IV SCH ×3 (03:15→19:00)
[2022-10-11 05:18] LABS: BASOPHILS % (AUTO) 0.2 % (0.0-2.0); EOSINOPHILS % (AUTO) 0.1 % (0.0-4.0); HEMATOCRIT 23.2 % (36-48); HEMOGLOBIN 7.6 g/dL (12.0-16.0); MEAN CORPUSCULAR HEMOGLOBIN 27 pg (27-31); MEAN CORPUSCULAR HGB CONC 33 % (32-36); MEAN CORPUSCULAR VOLUME 81 fL (79.0-98.0); NEUTROPHILS # (AUTO) 18.2 K/uL (1.8-7.7); NEUTROPHILS % (AUTO) 89.7 % (40.0-70.0); PLATELET COUNT (AUTO) 226 K/uL (130-430); RED BLOOD CELL COUNT(AUTO) 2.87 MIL/uL (4.2-6.2); RED CELL DISTRIBUTION WIDTH 20.4 % (9.0-15.0); WHITE BLOOD COUNT (AUTO) 20.3 K/uL (4.8-10.8)
[2022-10-11 05:40] LABS: ANION GAP 8 (5-15); CHLORIDE 102 mmol/L (98-107); CREATININE 1.77 mg/dL (0.55-1.30); GLUCOSE 111 mg/dL (70-99); UREA NITROGEN, BLOOD 30 mg/dL (8-21)
[2022-10-11 05:52] LABS: CALCIUM 6.8 mg/dL (8.4-11.0)
[2022-10-11] MEDS: LEVOTHYROXINE SODIUM 0.05 MG TABLET NG SCH (06:06)
[2022-10-11] MEDS: PIPERACILLIN/TAZO 2.25G/DEX-IS 50 ML IV SCH ×3 (06:08→22:04)
--- NOTE | 2022-10-11 06:43 | NUR ---
Dr Davy grimm for critical Ca+ level and low potassium.
--- NOTE | 2022-10-11 08:00 | NUR ---
patient received opens eyes to verbal commands; nonverbal;oxygen 2 litres nasal cannula with saturations >95%; afib on tele with controlled rate;ngt to LIS with smal amount of green output noted;guardado to dd with small amount of jayant urine noted;abdominal dressing intact; no bowel sounds noted
[2022-10-11] MEDS ORDERED: KCL 20 mEq in 100 mL (PREMIX) 100 ML IV ONE (08:30)
[2022-10-11] MEDS: ALLOPURINOL 100 MG TABLET (ZYLOPRIM) NG SCH (08:58)
[2022-10-11] MEDS: DOCUSATE SODIUM 100 MG/10 ML UDC NG SCH ×2 (08:58→21:30)
[2022-10-11] MEDS: VERAPAMIL HCL 80 MG TABLET NG SCH (08:59)
[2022-10-11] MEDS: METOPROLOL TARTRATE 50 MG TABLET NG SCH ×2 (09:00→21:32)
[2022-10-11] MEDS: MULTIVITAMINS TAB 1 TABLET NG SCH (09:00)
[2022-10-11] MEDS: POLYETHYLENE GLYCOL 3350, 17 GM/ POWD.PACK NG SCH (09:00)
--- NOTE | 2022-10-11 10:00 | NUR ---
NGT clamped per Dr balbuena's orders; will continue to monitor for nausea and vomitting
--- NOTE | 2022-10-11 10:26 | NUR ---
Nutrition F/U RD reviewed pts current EMR including diet hx, physician notes, nursing notes, pertinent labs/meds/procedures, care trends and care activity. Subjective Information RD attended ICU rounds and s/w primary RN. She reports that pt had ex lab w/ bowel resection yesterday and her TF has been held to give her bowels a rest. She said they likely will not resume feedings for a day or two. Also that family had given preliminary consent for PEG, so that is a likely possibility in the next few days. Pt still has NGT-LIS but reportedly less output today. Pt is on D5@ 125mL/hr (provides 510 kcal). RN report s DTI on sacrum. Per EMR review: abd soft, non-distended w/ active bowel sounds; BP still trending low 118/56; 2L NC. Current Diet Order/Nutrition Support Jevity 1.2 @ 60mL/hr (goal), FWF 100mL Q6H via NGT % PO intake NPO Last BM 10/08 x 4 Estimated Energy Expenditure (kcals/day) 0929-3699 (30-35 kcal/kg CBW [60kg] d/t sepsis) Estimated Protein Required (g/day) 71-88 (1.25-1.5 gm/kg CBW d/t FARHAD, sepsis) Estimated Fluid Required (l/day) Per physician d/t CHF Problem/Etiology/Signs/Symptoms *MODIFIED* Inappropriate EN formula R/T suspected tube feeding intolerance AEB increased residual output, Trust Manager and RN witness +500mL residual collected along w/ tighten abd distention (*resolved). Altered nutrition-related lab values R/T catabolic illness AEB WBC 35.2H* (trending up), K 4.2WNL, BUN 14WNL, Cre 1.54H (trending down), BG 151H (trending up), Na 133L (trending down) (*improving). Suboptimal nutrition support R/T metabolic demands AEB TF prescription does not meet 85% of nutritional needs (*Resolved). Inadequate oral intakes R/T suspected chewing/swallowing difficulty AEB negligible PO intake records and nursing report (*Resolved). Expected Outcomes/Goals Monitor tolerance of nutrition support, residual output, labs trending WNL, bowel regime q1-3 days, and skin integrity/ wt maintenance. Dietitian Recommendations *Continue Jevity 1.2 @ 60mL/hr (goal), FWF 100mL Q6H via GT, when medically appropriate Provides: 1728 kcal, 80 g PRO, 1562 mL free water (inc FWF) Meets: 98% of lower est kcal, 91% of upper PRO needs * Consider DC dextrose when TF resumes * Consider Phillip BID when TF resumes Follow up *High Risk: see pt in 2-3 days GS, MPH, RD
--- NOTE | 2022-10-11 10:28 | NUR ---
Dietitian Recommendations * Continue Jevity 1.2 @ 60mL/hr (goal), FWF 100mL Q6H via GT, when medically appropriate Provides: 1728 kcal, 80 g PRO, 1562 mL free water (inc FWF) Meets: 98% of lower est kcal, 91% of upper PRO needs * Consider DC dextrose when TF resumes * Consider Phillip BID when TF resumes GS, MPH, RD Please refer to Nutrition F/U for further details. Thanks!
[2022-10-11] MEDS: ALBUMIN HUMAN 25% 50 ML IV SCH ×2 (14:00→19:41)
[2022-10-11] MEDS: SPIRONOLACTONE 50 MG TABLET (ALDACTONE) NG SCH (14:01)
--- NOTE | 2022-10-11 16:00 | NUR ---
Pt receiving 1 unit of PRBC without problems; will continue to monitor
--- NOTE | 2022-10-11 18:11 | NUR ---
PRBC continues without prolems;no vomiting or nausea noted;NGT remained clamped
[2022-10-11] MEDS: FLUCONAZOLE 100 mg/ NS 50 ML IV SCH (19:45)
[2022-10-11 21:26] LABS: HEMATOCRIT 24.1 % (36-48)
[2022-10-11] MEDS: ATORVASTATIN 10 MG TABLET NG SCH (21:31)
[2022-10-11] MEDS: CYCLOBENZAPRINE HCL 10 MG TABLET (FLEXERIL) NG SCH (21:31)
[2022-10-12] VITALS (24 sets, daily range): BP systolic 117–147
[2022-10-12] MEDS: ALBUMIN HUMAN 25% 50 ML IV SCH (01:01)
[2022-10-12] MEDS: D5NS 1,000 ML IV SCH ×2 (04:20→11:00)
[2022-10-12] MEDS: PIPERACILLIN/TAZO 2.25G/DEX-IS 50 ML IV SCH ×3 (05:25→21:58)
[2022-10-12 05:31] LABS: BASOPHILS % (AUTO) 0.1 % (0.0-2.0); EOSINOPHILS # (AUTO) 0.1 K/uL (0.0-0.4); EOSINOPHILS % (AUTO) 0.8 % (0.0-4.0); HEMATOCRIT 24.3 % (36-48); HEMOGLOBIN 7.9 g/dL (12.0-16.0); LYMPHOCYTES # (AUTO) 1.1 K/uL (1.0-5.5); LYMPHOCYTES % (AUTO) 6.9 % (20.5-51.5); MEAN CORPUSCULAR HEMOGLOBIN 27 pg (27-31); MEAN CORPUSCULAR HGB CONC 33 % (32-36); MEAN CORPUSCULAR VOLUME 83 fL (79.0-98.0); MONOCYTES # (AUTO) 0.9 K/uL (0.0-1.0); NEUTROPHILS # (AUTO) 13.2 K/uL (1.8-7.7); NEUTROPHILS % (AUTO) 86.2 % (40.0-70.0); PLATELET COUNT (AUTO) 226 K/uL (130-430); RED BLOOD CELL COUNT(AUTO) 2.93 MIL/uL (4.2-6.2); RED CELL DISTRIBUTION WIDTH 19.5 % (9.0-15.0); WHITE BLOOD COUNT (AUTO) 15.3 K/uL (4.8-10.8)
[2022-10-12 05:52] LABS: ANION GAP 6 (5-15); CALCIUM 7.2 mg/dL (8.4-11.0); CHLORIDE 104 mmol/L (98-107); GLUCOSE 90 mg/dL (70-99); UREA NITROGEN, BLOOD 23 mg/dL (8-21)
[2022-10-12] MEDS: LEVOTHYROXINE SODIUM 0.05 MG TABLET NG SCH (06:07)
[2022-10-12] MEDS: DOCUSATE SODIUM 100 MG/10 ML UDC NG SCH ×2 (09:24→21:58)
[2022-10-12] MEDS: ALLOPURINOL 100 MG TABLET (ZYLOPRIM) NG SCH (09:24)
[2022-10-12] MEDS: VERAPAMIL HCL 80 MG TABLET NG SCH (09:25)
[2022-10-12] MEDS: METOPROLOL TARTRATE 50 MG TABLET NG SCH ×2 (09:26→21:58)
[2022-10-12] MEDS: MULTIVITAMINS TAB 1 TABLET NG SCH (09:26)
[2022-10-12] MEDS: POLYETHYLENE GLYCOL 3350, 17 GM/ POWD.PACK NG SCH (09:26)
[2022-10-12] MEDS: SPIRONOLACTONE 50 MG TABLET (ALDACTONE) NG SCH (09:28)
--- NOTE | 2022-10-12 15:54 | NUR ---
Dr. Maria is aware hgb 7.9 today, order to keep monitor, no intervention unless s/s of active bleeding or hgb < 7.5
[2022-10-12] MEDS: FLUCONAZOLE 100 mg/ NS 50 ML IV SCH (20:00)
[2022-10-12] MEDS: CYCLOBENZAPRINE HCL 10 MG TABLET (FLEXERIL) NG SCH (21:58)
[2022-10-12] MEDS: ATORVASTATIN 10 MG TABLET NG SCH (21:59)
[2022-10-13] VITALS (11 sets, daily range): BP systolic 124–152
[2022-10-13] MEDS: D5NS 1,000 ML IV SCH (00:34)
[2022-10-13 06:28] LABS: BASOPHILS % (AUTO) 0.4 % (0.0-2.0); EOSINOPHILS # (AUTO) 0.5 K/uL (0.0-0.4); EOSINOPHILS % (AUTO) 5.3 % (0.0-4.0); HEMATOCRIT 26.3 % (36-48); HEMOGLOBIN 8.7 g/dL (12.0-16.0); LYMPHOCYTES % (AUTO) 11.6 % (20.5-51.5); MEAN CORPUSCULAR HEMOGLOBIN 27 pg (27-31); MEAN CORPUSCULAR HGB CONC 33 % (32-36); MEAN CORPUSCULAR VOLUME 83 fL (79.0-98.0); MONOCYTES # (AUTO) 0.6 K/uL (0.0-1.0); MONOCYTES % (AUTO) 6.6 % (1.7-9.3); NEUTROPHILS # (AUTO) 6.6 K/uL (1.8-7.7); NEUTROPHILS % (AUTO) 76.1 % (40.0-70.0); PLATELET COUNT (AUTO) 216 K/uL (130-430); RED BLOOD CELL COUNT(AUTO) 3.17 MIL/uL (4.2-6.2); RED CELL DISTRIBUTION WIDTH 19.5 % (9.0-15.0); WHITE BLOOD COUNT (AUTO) 8.7 K/uL (4.8-10.8)
[2022-10-13] MEDS: PIPERACILLIN/TAZO 2.25G/DEX-IS 50 ML IV SCH ×3 (06:50→23:59)
[2022-10-13] MEDS: LEVOTHYROXINE SODIUM 0.05 MG TABLET NG SCH (06:54)
[2022-10-13 07:06] LABS: ALANINE AMINOTRANSFERASE 22 U/L (12-78); ALBUMIN 1.5 g/dL (3.4-4.8); ANION GAP 6 (5-15); ASPARTATE AMINOTRANSFERASE 21 U/L (10-37); CALCIUM 7.1 mg/dL (8.4-11.0); CHLORIDE 103 mmol/L (98-107); CREATININE 1.11 mg/dL (0.55-1.30); GLUCOSE 71 mg/dL (70-99); TOTAL BILIRUBIN 0.7 mg/dL (0.0-1.0); UREA NITROGEN, BLOOD 16 mg/dL (8-21)
[2022-10-13] MEDS: VERAPAMIL HCL 80 MG TABLET NG SCH (09:00)
[2022-10-13] MEDS: MULTIVITAMINS TAB 1 TABLET NG SCH (09:00)
[2022-10-13] MEDS: METOPROLOL TARTRATE 50 MG TABLET NG SCH ×2 (09:00→21:00)
[2022-10-13] MEDS: SPIRONOLACTONE 50 MG TABLET (ALDACTONE) NG SCH (09:00)
[2022-10-13] MEDS: POLYETHYLENE GLYCOL 3350, 17 GM/ POWD.PACK NG SCH (09:00)
[2022-10-13] MEDS: ALLOPURINOL 100 MG TABLET (ZYLOPRIM) NG SCH (09:00)
[2022-10-13] MEDS: DOCUSATE SODIUM 100 MG/10 ML UDC NG SCH ×2 (09:00→21:00)
--- NOTE | 2022-10-13 10:19 | NUR ---
Nutrition F/U RD reviewed pts current EMR including diet hx, physician notes, nursing notes, pertinent labs/meds/procedures, care trends and care activity. Subjective Information RD attended ICU rounds and s/w primary RN. She reports that pt will likely be downgraded to tely tomorrow. Pt is on 2L-NC. RD asked RN if pt is diabetic bc Glucerna was ordered but RN said she wasnt. Also she said that TF was not started yet and she wasnt sure when it would be d/t her GI issues. Pt is on D5@ 50mL/hr (provides 204 kcal), cardizem, piperacillin/tazobactam, colace, spironolactone, miralax. Per EMR review: abd soft, non-distended w/ active bowel sounds; 2L NC. Lion: 11 w/ redness on sacrum Current Diet Order/Nutrition Support Gucerna 1.2 @ 20mL/hr via NGT x 0 days % PO intake NPO Last BM 10/12 x 2 Estimated Energy Expenditure (kcals/day) 4419-1603 (30-35 kcal/kg CBW [60kg] d/t sepsis) Estimated Protein Required (g/day) 71-88 (1.25-1.5 gm/kg CBW d/t FARHAD, sepsis) Estimated Fluid Required (l/day) Per physician d/t CHF Problem/Etiology/Signs/Symptoms *MODIFIED* Altered nutrition-related lab values R/T catabolic illness AEB WBC 35.2H* (trending up), K 4.2WNL, BUN 14WNL, Cre 1.54H (trending down), BG 151H (trending up), Na 133L (trending down) (*improving). Suboptimal nutrition support R/T metabolic demands AEB TF prescription does not meet 85% of nutritional needs (*Resolved). Expected Outcomes/Goals Monitor tolerance of nutrition support, residual output, labs trending WNL, bowel regime q1-3 days, and skin integrity/ wt maintenance. Dietitian Recommendations *Consider Jevity 1.2 @ 60mL/hr (goal), FWF 100mL Q6H via NGT or GT, when medically appropriate Provides: 1728 kcal, 80 g PRO, 1562 mL free water (inc FWF) Meets: 98% of lower est kcal, 91% of upper PRO needs * Consider DC dextrose when TF begins * Consider Phillip BID when TF begins Follow up *High Risk: see pt in 2-3 days GS, MPH, RD
--- NOTE | 2022-10-13 10:25 | NUR ---
Dietitian Recommendations *Consider Jevity 1.2 @ 60mL/hr (goal), FWF 100mL Q6H via NGT or GT, when medically appropriate Provides: 1728 kcal, 80 g PRO, 1562 mL free water (inc FWF) Meets: 98% of lower est kcal, 91% of upper PRO needs * Consider DC dextrose when TF begins * Consider Phillip BID when TF begins GS, MPH, RD Please refer to Nutrition F/U for further details. Thanks!
--- NOTE | 2022-10-13 14:07 | NUR ---
OPENING NOTES RECEIVED BEDSIDE SBAR FROM ICU NURSE, PATIENT IS STABLE NO S/S OF ANY DISTRESS, NON LABOR BREATHING, CALL LIGHT IN REACH NG TUBE IN PLACE, MIDLINE INTACT, F/C DRAINING TO GRAVITY, BED LOCKED AND AT LOW POSITION WILL CONT TO MONITOR PATIENT. K 3.1 ICU NURSE RECEIVED NEW ORDERS FOR PLACEMENT.
[2022-10-13] MEDS ORDERED: KCL 40 mEq in 100 mL (PREMIX) 100 ML IV ONE (14:15)
[2022-10-13] MEDS ORDERED: FUROSEMIDE 20 MG/2 ML VIAL IVP ONE (15:30)
--- NOTE | 2022-10-13 15:30 | NUR ---
DR PANIAGUA AT BEDSIDE NEW ORDERS: KEEP NPO, BREATHING TREATMENTS WITH RT
--- NOTE | 2022-10-13 15:55 | NUR ---
MIDLINE VERY SWOLLEN WILL GET NEW ORDER FOR ANOTHER ONE,
[2022-10-13] MEDS ORDERED: POTASSIUM CHLORIDE 40 MEQ in NS 250 ML IV ONE (16:00)
--- NOTE | 2022-10-13 16:32 | NUR ---
CALLED PICC LINE NURSE [phone] MIDLINE NEEDS TO BE REPLACED MEÑO RIGHT ARM VERY SWOLLEN. PATIENT JUST GOT OUT OF ICU.
--- NOTE | 2022-10-13 17:16 | NUR ---
ST EVALUATION COMPLETED. ST TX NOT INDICATED AT THIS TIME. PT UNABLE TO DEMONSTRATE ADEQUATE SWALLOW FUNCTION AND SAFETY. RECOMMEND NPO WITH ALTERNATIVE MEANS OF NUTRITION.
--- NOTE | 2022-10-13 18:46 | NUR ---
CLOSING NOTES: PATIENT REMAINED STABLE THOUGHT THE DAY, NO S/S OF ANY DISTRESS, RESTING WELL IN BED WATCHING TV, WILL GIVE PM SHIFT NURSE BEDSIDE SBAR.
[2022-10-13] MEDS: FLUCONAZOLE 100 mg/ NS 50 ML IV SCH (20:00)
[2022-10-13] MEDS: ATORVASTATIN 10 MG TABLET NG SCH (21:00)
[2022-10-13] MEDS: CYCLOBENZAPRINE HCL 10 MG TABLET (FLEXERIL) NG SCH (21:00)
[2022-10-14] VITALS (7 sets, daily range): BP systolic 116–150
[2022-10-14] MEDS: FLUCONAZOLE 100 mg/ NS 50 ML IV SCH ×2 (01:01→20:43)
[2022-10-14] MEDS: D5NS 1,000 ML IV SCH ×2 (01:05→14:38)
[2022-10-14] MEDS: CYCLOBENZAPRINE HCL 10 MG TABLET (FLEXERIL) NG SCH (01:54)
[2022-10-14] MEDS: ATORVASTATIN 10 MG TABLET NG SCH (01:56)
[2022-10-14] MEDS: LEVOTHYROXINE SODIUM 0.05 MG TABLET NG SCH (06:02)
[2022-10-14] MEDS: PIPERACILLIN/TAZO 2.25G/DEX-IS 50 ML IV SCH ×3 (06:17→22:07)
[2022-10-14 06:40] LABS: BASOPHILS # (AUTO) 0.1 K/uL (0.0-0.2); BASOPHILS % (AUTO) 0.9 % (0.0-2.0); EOSINOPHILS # (AUTO) 0.3 K/uL (0.0-0.4); EOSINOPHILS % (AUTO) 3.4 % (0.0-4.0); HEMATOCRIT 27.9 % (36-48); HEMOGLOBIN 9.3 g/dL (12.0-16.0); LYMPHOCYTES # (AUTO) 0.9 K/uL (1.0-5.5); LYMPHOCYTES % (AUTO) 11.6 % (20.5-51.5); MEAN CORPUSCULAR HEMOGLOBIN 28 pg (27-31); MEAN CORPUSCULAR HGB CONC 33 % (32-36); MEAN CORPUSCULAR VOLUME 84 fL (79.0-98.0); MONOCYTES # (AUTO) 0.5 K/uL (0.0-1.0); MONOCYTES % (AUTO) 7.1 % (1.7-9.3); NEUTROPHILS # (AUTO) 5.8 K/uL (1.8-7.7); PLATELET COUNT (AUTO) 245 K/uL (130-430); RED BLOOD CELL COUNT(AUTO) 3.35 MIL/uL (4.2-6.2); RED CELL DISTRIBUTION WIDTH 19.2 % (9.0-15.0); WHITE BLOOD COUNT (AUTO) 7.6 K/uL (4.8-10.8)
--- NOTE | 2022-10-14 06:51 | NUR ---
CLOSING NOTES PT IS IN BED IN LOW POSITION WITH ALL PRECAUTIONS IN PLACE. PT ISIN HER ROOM RESTING . THERE WAS NO DISCOMFORT NOTED.NOW PT IS RESTING SLEEPING ON AND OFF.
[2022-10-14 07:52] LABS: ALANINE AMINOTRANSFERASE 25 U/L (12-78); ALBUMIN 1.7 g/dL (3.4-4.8); ANION GAP 8 (5-15); ASPARTATE AMINOTRANSFERASE 27 U/L (10-37); CALCIUM 7.3 mg/dL (8.4-11.0); CHLORIDE 102 mmol/L (98-107); CREATININE 0.95 mg/dL (0.55-1.30); GLUCOSE 64 mg/dL (70-99); TOTAL BILIRUBIN 0.8 mg/dL (0.0-1.0); UREA NITROGEN, BLOOD 13 mg/dL (8-21)
--- NOTE | 2022-10-14 08:00 | NUR ---
Opening Notes Patient is AOx2, awake, and confused. No ss of distress noted. breathing is even and nonlabored, on 2 L O2 via NC. No facial grimace noted. patient denies pain. JOSE CRUZ midline patent, IVF running. NGT in place. Abdomen soft and distended. Auscultated, air bubbles heard. patient NPO. Abdominal incision covered with dressing, C, D, and I. Vital signs obtained, as documented. Adkins catheter draining yellow urine by gravity. Bed is locked, alarm on, and at lowest position. Call light within reach.
[2022-10-14] MEDS: POLYETHYLENE GLYCOL 3350, 17 GM/ POWD.PACK NG SCH (09:00)
[2022-10-14] MEDS: DOCUSATE SODIUM 100 MG/10 ML UDC NG SCH ×2 (09:00→21:00)
[2022-10-14] MEDS: ALLOPURINOL 100 MG TABLET (ZYLOPRIM) NG SCH (10:29)
[2022-10-14] MEDS: VERAPAMIL HCL 80 MG TABLET NG SCH (10:30)
[2022-10-14] MEDS: SPIRONOLACTONE 50 MG TABLET (ALDACTONE) NG SCH (10:30)
[2022-10-14] MEDS: METOPROLOL TARTRATE 50 MG TABLET NG SCH ×2 (10:31→21:00)
[2022-10-14] MEDS: MULTIVITAMINS TAB 1 TABLET NG SCH (10:32)
--- NOTE | 2022-10-14 10:40 | NUR ---
D/C NGT PER, DR. NATHAN. STATED SPOKE WITH DR. MORALES AND FOR NGT TO BE DISCONTINUED. NGT FEEDING TO BE DISCONTINUED. PATIENT TO HAVE SWALLOW EVALUATION DONE TODAY. NGT D/C. PATIENT TOLERATED WELL. NO SS OF DISTRESS NOTED. ALL SAFETY PRECAUTIONS ION PLACE AND CALL LIGHT WITHIN REACH.
--- NOTE | 2022-10-14 10:56 | NUR ---
SWALLOW/ORAL EVAL CALLED [phone] LEFT A VOICEMAIL FOR A SWALLOW EVAL.
--- NOTE | 2022-10-14 12:00 | NUR ---
notes Patient has been cleaned and repositioned. No ss of distress noted. No facial grimace noted. Patient stable. IVF running. Bed is lcoked, alarm on, and at lowest position. call light within reach.
--- NOTE | 2022-10-14 14:19 | NUR ---
Dr Bhatti gave an order for patient to be evaluated by [facility]- Referral called to Yahaira at [phone]
--- NOTE | 2022-10-14 15:15 | NUR ---
[facility] OFFICER MS ALVARENGAIE FLEX CALLED AND ASK TO FAX SOME CLINICAL - H/P, V/S, DIET AND CULTURES. INFORMED CHARGE NURSE GAEL ABOUT THE REQUEST. CASE MGMT DIRECTOR, MS DICKENS WAS NOTIFIED BY GAEL OF THE REQUEST.
--- NOTE | 2022-10-14 16:30 | NUR ---
Notes Speech therapist did swallow evaluation and informed nurse that patient did not pass. Called and spoke to Dr. Bhatti. made aware. Per MD, continue IVF and consult GI for GT placement.
--- NOTE | 2022-10-14 16:50 | NUR ---
ST EVALUATION COMPLETED. ST TX NOT INDICATED AT THIS TIME. PT UNABLE TO DEMONSTRATE A SAFE EFFECTIVE SWALLOW. RECOMMEND NPO WITH ALTERNATIVE MEANS OF NUTRITION.
--- NOTE | 2022-10-14 17:30 | NUR ---
ATTENDING MD DR CALLE DISCHARGED PT TO [facility] GAVE THE FOLLOWING INFO: ACCEPTED AT [facility], RM 208 B. PT CAN BE BE TRANSFERED AT 10AM, 10/15/22 TO CALL REPORT : [phone] PER MS MANINDER Sauceda, OUR CM DIRECTOR, ANY AMBULANCE CAN BE USED FOR TRANSPORT SINCE THIS IS A MEDICARE A AND B PT.
--- NOTE | 2022-10-14 18:46 | NUR ---
closing notes Patient is resting, eyes closed. Breathing is even and nonlabored, on 2 L O2 via NC. No facial grimace noted. No SOB noted. No acute ss of distress noted. JOSE CRUZ midline Patent. IVF running. Patient remains NPO. Patient is stable. Bed is locked, alarm on, and at lowest position. Call light within reach. Patient is set to be discharged to [facility] Tomorrow . Estimate occupational therapist assistants time is 1000 am.
--- NOTE | 2022-10-14 19:15 | NUR ---
OPENING NOTE REPORT RECEIVED FROM DAYSNDFT NURSE. PATIENT RECEIVED LYING IN BED, RESTING, NO S/S OF ACUTE DISTRESS. BREATHING EVEN AND UNLABORED. HOB RAISED, NASAL CANULA ATTACHED PROPERLY. IVF INFUSING WELL. IV SITE PATENT, NO SIGNS OF INFILTRATION OR INFECTION NOTED. ORTEGA ATTACHED, SECURED, AND DRAINING BY GRAVITY. CALL LIGHT WITH PATIENT. BED ALARM ON. BED IS LOCKED AND AT LOWEST POSITION. WILL CONTINUE TO MONITOR.
--- NOTE | 2022-10-14 23:00 | NUR ---
ROUNDS PATIENT IN BED, RESTING. NO SIGNS OF DISCOMFORT. ALL NEEDS MET. WILL MONITOR.
[2022-10-15 00:38] VITALS: BP_SYST 142
--- NOTE | 2022-10-15 03:00 | NUR ---
ROUNDS PATIENT IN BED, NO CHANGES FROM PREVIOUS. ALL NEEDS MET. WILL MONITOR.
[2022-10-15] MEDS: PIPERACILLIN/TAZO 2.25G/DEX-IS 50 ML IV SCH (05:10)
[2022-10-15] MEDS: LEVOTHYROXINE SODIUM 0.05 MG TABLET NG SCH (06:13)
--- NOTE | 2022-10-15 06:13 | NUR ---
CLOSING NOTE PATIENT IN BED, RESTING AT THIS TIME. NO S/S OF ACUTE DISTRESS. BREATHING EVEN AND UNLABORED. HOB RAISED, NASAL CANULA ATTACHED PROPERLY, ON 2L OF OXYGEN. IVF INFUSING WELL, IV SITE PATENT, NO SIGNS OF INFILTRATION OR INFECTION NOTED. ORTEGA ATTACHED, SECURED, AND DRAINING BY GRAVITY. ALL NEEDS MET THROUGHOUT SHIFT. FALL, SAFETY, PRECAUTIONS MAINTAINED THROUGHOUT SHIFT. WILL CONTINUE TO MONITOR UNTIL PATIENT CARE IS ENDORSED TO ONCOMING DAYSHIFT NURSE.
[2022-10-15 08:00] VITALS: BP_SYST 131
--- NOTE | 2022-10-15 08:00 | NUR ---
Opening Notes patient is Aox2. Confused. Breathing is even and nonlabored, on 2 L O2 via NC. No ss of distress noted. IVF running. Midline patent. NO SOB noted. Vital signs obtained, as documented. No facial grimace noted. Patient NPO. Adkins catheter draining yellow urine by gravity. Bed is locked, alarm on, and at lowest position. Call light within reach.
[2022-10-15 08:29] VITALS: BP_SYST 127; BP_SYST 131
[2022-10-15] MEDS: D5NS 1,000 ML IV SCH (08:38)
--- NOTE | 2022-10-15 08:48 | NUR ---
MD CALLED AND SPOKE TO DR. MONAE. PER , CONTINUE IV ANTIBIOTICS ZOSYN 2.25 GM IV Q8H AND DIFLUCAN 100 MG IV Q24H FOR MILADIS ADDITIONAL 7 SEVEN DAYS AFTER DISCHARGE. CALLED AND SPOKE TO DR. CALLE. PER , PATIENT TO BE DISCHARGED WITH MIDLINE AND ORTEGA CATHETER IN PLACE.
[2022-10-15 08:57] LABS: BASOPHILS # (AUTO) 0.1 K/uL (0.0-0.2); EOSINOPHILS # (AUTO) 0.3 K/uL (0.0-0.4); EOSINOPHILS % (AUTO) 5.1 % (0.0-4.0); HEMATOCRIT 27.4 % (36-48); HEMOGLOBIN 9.1 g/dL (12.0-16.0); LYMPHOCYTES # (AUTO) 1.1 K/uL (1.0-5.5); MEAN CORPUSCULAR HEMOGLOBIN 28 pg (27-31); MEAN CORPUSCULAR HGB CONC 33 % (32-36); MEAN CORPUSCULAR VOLUME 83 fL (79.0-98.0); MONOCYTES # (AUTO) 0.6 K/uL (0.0-1.0); MONOCYTES % (AUTO) 10.1 % (1.7-9.3); NEUTROPHILS # (AUTO) 4.2 K/uL (1.8-7.7); NEUTROPHILS % (AUTO) 66.8 % (40.0-70.0); PLATELET COUNT (AUTO) 229 K/uL (130-430); RED CELL DISTRIBUTION WIDTH 19.2 % (9.0-15.0); WHITE BLOOD COUNT (AUTO) 6.3 K/uL (4.8-10.8)
[2022-10-15] MEDS: METOPROLOL TARTRATE 50 MG TABLET NG SCH (09:00)
[2022-10-15] MEDS: ALLOPURINOL 100 MG TABLET (ZYLOPRIM) NG SCH (09:00)
[2022-10-15] MEDS: POLYETHYLENE GLYCOL 3350, 17 GM/ POWD.PACK NG SCH (09:00)
[2022-10-15] MEDS: MULTIVITAMINS TAB 1 TABLET NG SCH (09:00)
[2022-10-15] MEDS: DOCUSATE SODIUM 100 MG/10 ML UDC NG SCH (09:00)
[2022-10-15] MEDS: VERAPAMIL HCL 80 MG TABLET NG SCH (09:00)
[2022-10-15] MEDS: SPIRONOLACTONE 50 MG TABLET (ALDACTONE) NG SCH (09:00)
[2022-10-15 09:13] LABS: ALANINE AMINOTRANSFERASE 17 U/L (12-78); ALBUMIN 1.5 g/dL (3.4-4.8); ANION GAP 6 (5-15); ASPARTATE AMINOTRANSFERASE 21 U/L (10-37); CHLORIDE 105 mmol/L (98-107); CREATININE 0.88 mg/dL (0.55-1.30); GLUCOSE 77 mg/dL (70-99); PHOSPHORUS 2.3 mg/dL (2.7-4.5); TOTAL BILIRUBIN 0.6 mg/dL (0.0-1.0); UREA NITROGEN, BLOOD 9 mg/dL (8-21)
--- NOTE | 2022-10-15 10:30 | NUR ---
notes patient was cleaned and repositioned. Perineal/ catheter care done. Skin/ wound care done.
[2022-10-15 11:26] VITALS: BP_SYST 127
--- NOTE | 2022-10-15 11:29 | NUR ---
CALLED [facility]. GAVE REPORT TO SHABNAM FIORE. PATIENT WILL GO TO ROOM 208B.
--- NOTE | 2022-10-15 11:35 | NUR ---
D/C Patient Patient given medication reconciliation form and D/C instructions. Exit Care provided. Patient is confused. Family was informed of transfer to [place], consent signed by son. MD discussed with patient/ family the results and treatment provided. Patient nonambulatory. Patient in stable condition, ID band removed. Patient left with midline and Adkins catheter, per MD. All belongings sent with patient.
== END 2022-10-15 11:35 | DRG 853 ==
LOC: SED 09:56 → STU 13:46 → SIC 10-03 04:26 → STU 10-04 22:28 → SIC 10-08 20:09 → STU 10-13 12:16
PROVIDERS: ADMIT Internal Medicine; ATTEND Internal Medicine
PROC: 0D9670Z Drainage of Stomach with Drainage Device, Via Natural or Artificial Opening (ICD-10-PCS; 2022-10-02)
PROC: 30233N1 Transfusion of Nonautologous Red Blood Cells into Peripheral Vein, Percutaneous Approach (ICD-10-PCS; 2022-10-03)
PROC: 02HV33Z Insertion of Infusion Device into Superior Vena Cava, Percutaneous Approach (ICD-10-PCS; 2022-10-03)
PROC: B548ZZA Ultrasonography of Superior Vena Cava, Guidance (ICD-10-PCS; 2022-10-03)
PROC: 0DBP8ZZ Excision of Rectum, Via Natural or Artificial Opening Endoscopic (ICD-10-PCS; principal; 2022-10-03 08:30)
PROC: 4A10X4Z Monitoring of Central Nervous Electrical Activity, External Approach (ICD-10-PCS; 2022-10-09)
PROC: 0DB80ZZ Excision of Small Intestine, Open Approach (ICD-10-PCS; 2022-10-10)
DX: A41.9 Sepsis, unspecified organism (principal); E43 Unspecified severe protein-calorie malnutrition; N17.0 Acute kidney failure with tubular necrosis; G93.41 Metabolic encephalopathy; E87.1 Hypo-osmolality and hyponatremia; N39.0 Urinary tract infection, site not specified; E87.20 Acidosis, unspecified; I48.20 Chronic atrial fibrillation, unspecified; K62.6 Ulcer of anus and rectum; I13.0 Hypertensive heart and chronic kidney disease with heart failure and stage 1 through stage 4 chronic kidney disease, or unspecified chronic kidney disease; I50.32 Chronic diastolic (congestive) heart failure; K55.9 Vascular disorder of intestine, unspecified; K56.609 Unspecified intestinal obstruction, unspecified as to partial versus complete obstruction; R65.20 Severe sepsis without septic shock; D75.838 Other thrombocytosis; E87.6 Hypokalemia; I25.10 Atherosclerotic heart disease of native coronary artery without angina pectoris; K21.9 Gastro-esophageal reflux disease without esophagitis; F41.9 Anxiety disorder, unspecified; E78.5 Hyperlipidemia, unspecified; E03.9 Hypothyroidism, unspecified; F03.90 Unspecified dementia, unspecified severity, without behavioral disturbance, psychotic disturbance, mood disturbance, and anxiety; F41.1 Generalized anxiety disorder; D75.839 Thrombocytosis, unspecified; M48.00 Spinal stenosis, site unspecified; M43.10 Spondylolisthesis, site unspecified; K56.41 Fecal impaction; K42.9 Umbilical hernia without obstruction or gangrene; K62.1 Rectal polyp; K63.5 Polyp of colon; M17.0 Bilateral primary osteoarthritis of knee; M16.0 Bilateral primary osteoarthritis of hip; N18.9 Chronic kidney disease, unspecified; Z20.822 Contact with and (suspected) exposure to COVID-19; E11.22 Type 2 diabetes mellitus with diabetic chronic kidney disease; D36.9 Benign neoplasm, unspecified site; K66.0 Peritoneal adhesions (postprocedural) (postinfection); D50.0 Iron deficiency anemia secondary to blood loss (chronic); Z79.899 Other long term (current) drug therapy; Z79.1 Long term (current) use of non-steroidal anti-inflammatories (NSAID); Z68.23 Body mass index [BMI] 23.0-23.9, adult; Z74.01 Bed confinement status; Z90.49 Acquired absence of other specified parts of digestive tract; Z79.01 Long term (current) use of anticoagulants; Z90.710 Acquired absence of both cervix and uterus; Z95.0 Presence of cardiac pacemaker
CPT/HCPCS: 36415; 36600; 45382; 45384; 70450-TC; 71045; 74018; 74250-TC; 76376; 76770; 80048; 80053; 80061; 80202; 81000; 82043; 82140; 82272; 82330; 82378; 82570; 82803-TC; 83605; 83735; 83880; 83930; 83935; 84100; 84302; 84311; 84443; 84484; 84550; 85007; 85018; 85025; 85027; 85610-TC; 85730-TC; 86038; 86140; 86301; 86304; 86431; 86886; 86900; 86901; 86920; 87040; 87081; 87086; 87101; 88305; 88307; 92610-GN; 93005; 93970; 95816; 96361; 96365; 96367; 96375; 99291; C9290; G0378; J0131; J0690; J0692; J0696; J1100; J1450; J1885; J1940; J2060; J2250; J2270; J2370; J2405; J2543; J2704; J3010; J3370; J3430; J3480; J3490; J7042; J7050; J7060; J7120; P9021; P9046; Q9963